=== PATIENT | male | born 1940 ===

== ENCOUNTER 2018-04-30 15:34 | Outpatient (REF) | payer MEDICARE, SELFPAY ==
[2018-04-30 19:46] LABS: HCT 39.9 % (40.0-50.0); Mean Corp. HGB Concentration 32.6 g/dL (32.0-36.0); Mean Corpuscular Hemoglobin 29.9 pg (27.0-33.0); Mean Corpuscular Volume 91.7 fL (80-95); Mean Platelet Volume 10.3 fL (8.0-11.0); Platelet Count 243 x1000/uL (130-400); RBC 4.35 m/cumm (4.50-6.00); White Blood Cell Count 4.96 k/cumm (4.4-10.8)
[2018-04-30 20:20] LABS: Anion Gap 4.7 mmol/L (3-11); BUN 20 mg/dL (7-18); CO2 29.3 mmol/L (21.0-32.0); CREATININE 1.02 mg/dL (0.70-1.30); Calcium 8.6 mg/dL (8.5-10.1); Chloride 109 mmol/L (98-107); Glucose 117 mg/dL (70-100); LDL CHOLESTEROL 95 mg/dL (<100); Potassium 3.9 mmol/L (3.5-5.1); Sodium 143 mmol/L (136-145); TSH 0.89 uIU/mL (0.358-3.74); Vitamin B12 1166 pg/mL (193-986)
== END 2018-04-30 15:54 ==
LOC: NCHCN 15:34
PROVIDERS: PCP Internal Medicine; Visit Provider Internal Medicine
DX: M72.2 Plantar fascial fibromatosis (principal); I10 Essential (primary) hypertension; R78.5 Finding of other psychotropic drug in blood; G31.84 Mild cognitive impairment of uncertain or unknown etiology
CPT/HCPCS: 80048; 83721; 85027; 82607; 84443

== ENCOUNTER 2018-05-04 16:31 | Outpatient (REF) | payer MEDICARE, SELFPAY ==
[2018-05-04 20:54] LABS: Iron 48 ug/dL (50-175); Total Iron Binding Capacity 367 ug/dL (250-450); Transferrin Sat 13 % (20-55)
[2018-05-04 21:06] LABS: Ferritin 62 ng/mL (8-388)
== END 2018-05-04 16:51 ==
LOC: NCHCN 16:31
PROVIDERS: PCP Internal Medicine; Referring Provider Internal Medicine; Visit Provider Internal Medicine
DX: D64.9 Anemia, unspecified (principal)
CPT/HCPCS: 82728; 83540; 83550; 85045

== ENCOUNTER 2018-05-05 10:53 | Outpatient (REF) | payer MEDICARE, SELFPAY ==
[2018-05-05 20:21] LABS: Reticulocyte 0.9 % (0.5-2.4)
== END 2018-05-05 11:13 ==
LOC: NCHCN 10:53
PROVIDERS: PCP Internal Medicine; Visit Provider Internal Medicine
DX: D64.9 Anemia, unspecified (principal)
CPT/HCPCS: 85045

== ENCOUNTER 2019-05-13 16:47 | Outpatient (REF) | payer MEDICARE, SELFPAY ==
[2019-05-13 20:10] LABS: ALT 24 U/L (16-63); Anion Gap 10.2 mmol/L (3-11); BUN 18 mg/dL (7-18); CO2 24.8 mmol/L (21.0-32.0); CREATININE 1.05 mg/dL (0.70-1.30); Calcium 8.9 mg/dL (8.5-10.1); Chloride 107 mmol/L (98-107); Glucose 98 mg/dL (70-100); LDL CHOLESTEROL 92 mg/dL (<100); Potassium 3.8 mmol/L (3.5-5.1); Sodium 142 mmol/L (136-145)
== END 2019-05-13 17:07 ==
LOC: NCHCN 16:47
PROVIDERS: PCP Internal Medicine; Visit Provider Internal Medicine
DX: I10 Essential (primary) hypertension (principal); M12.811 Other specific arthropathies, not elsewhere classified, right shoulder; G30.9 Alzheimer's disease, unspecified
CPT/HCPCS: 80048; 83721; 84460

== ENCOUNTER 2020-02-23 15:48 | Outpatient (REF) | payer MEDICARE, SELFPAY ==
[2020-02-23 19:41] LABS: HCT 40.4 % (40.0-50.0); HGB 13.4 g/dL (13.5-17.5); Mean Corp. HGB Concentration 33.2 g/dL (32.0-36.0); Mean Corpuscular Hemoglobin 30.2 pg (27.0-33.0); Mean Corpuscular Volume 91.2 fL (80-95); Mean Platelet Volume 10.8 fL (8.0-11.0); Platelet Count 208 x1000/uL (130-400); RBC 4.43 m/cumm (4.50-6.00); RBC Distribution Width 13.1 % (11.8-14.1); White Blood Cell Count 4.53 k/cumm (4.4-10.8)
[2020-02-23 20:00] LABS: ALT 24 U/L (16-63); AST 18 U/L (15-37); Albumin 3.8 g/dL (3.4-5.0); Alkaline Phosphatase 73 U/L (46-116); Anion Gap 9.1 mmol/L (3-11); BUN 22 mg/dL (7-18); Bilirubin, Total 0.9 mg/dL (0.2-1.0); CO2 25.9 mmol/L (21.0-32.0); CREATININE 1.04 mg/dL (0.70-1.30); Calcium 9.1 mg/dL (8.5-10.1); Chloride 106 mmol/L (98-107); Glucose 98 mg/dL (74-106); Potassium 4.2 mmol/L (3.5-5.1); Sodium 141 mmol/L (136-145); Total Protein 6.2 g/dL (6.4-8.2)
== END 2020-02-23 16:08 ==
LOC: NCHCN 15:48
PROVIDERS: PCP Internal Medicine; Visit Provider Internal Medicine
DX: I10 Essential (primary) hypertension (principal); G30.9 Alzheimer's disease, unspecified; Z00.00 Encounter for general adult medical examination without abnormal findings; K21.9 Gastro-esophageal reflux disease without esophagitis
CPT/HCPCS: 80053; 85027

== ENCOUNTER → 2020-03-21 12:32 | Outpatient (BNVA) | payer MEDICARE, SELFPAY | PROVIDERS: PCP Internal Medicine; Referring Provider Internal Medicine; Visit Provider Nurse Practitioner Adult Health | DX: F95.8 Other tic disorders (principal); R41.89 Other symptoms and signs involving cognitive functions and awareness | CPT/HCPCS: 99205; 99244 ==

== ENCOUNTER → 2020-04-24 13:30 | Outpatient (BNVA) | payer MEDICARE, SELFPAY | PROVIDERS: PCP Internal Medicine; Referring Provider Internal Medicine; Visit Provider Nurse Practitioner Adult Health | DX: G31.83 Neurocognitive disorder with Lewy bodies (principal); F02.80 Dementia in other diseases classified elsewhere, unspecified severity, without behavioral disturbance, psychotic disturbance, mood disturbance, and anxiety; I10 Essential (primary) hypertension | CPT/HCPCS: 99213 ==

== ENCOUNTER → 2020-12-18 12:28 | Outpatient (BNVA) | payer MEDICARE, SELFPAY | PROVIDERS: PCP Internal Medicine; Referring Provider Internal Medicine; Visit Provider Nurse Practitioner Adult Health | DX: G31.83 Neurocognitive disorder with Lewy bodies (principal); F02.80 Dementia in other diseases classified elsewhere, unspecified severity, without behavioral disturbance, psychotic disturbance, mood disturbance, and anxiety; H91.93 Unspecified hearing loss, bilateral | CPT/HCPCS: 99213; 99215; G2212 ==

== ENCOUNTER 2021-01-31 14:47 | Outpatient (REF) | payer MEDICARE, SELFPAY ==
[2021-01-31 19:03] LABS: HCT 40.6 % (40.0-50.0); HGB 13.8 g/dL (13.5-17.5); MCH 30.3 pg (27.0-33.0); MPV 10.8 fL (8.0-11.0); Platelet Count 186 10^3/uL (130-400); RBC 4.56 10^6/uL (4.36-5.78); RDW 12.5 % (11.8-14.1); RDW-SD 41.1 fL; WBC 4.67 10^3/uL (4.4-10.8)
[2021-01-31 19:30] LABS: BUN 20 mg/dL (7-18); CREATININE 1.2 mg/dL (0.70-1.30); Calcium 9.2 mg/dL (8.5-10.1); Chloride 106 mmol/L (98-107); Estimated GFR 58.26 (mL/min/1.73m2); Glucose 110 mg/dL (74-106); Potassium 4.3 mmol/L (3.5-5.1); Sodium 143 mmol/L (136-145); TSH 1.06 uIU/mL (0.36-3.74)
== END 2021-01-31 14:48 | disposition home or self-care (01) ==
LOC: NCHCN 14:47
PROVIDERS: PCP Internal Medicine; Visit Provider Internal Medicine
DX: I10 Essential (primary) hypertension (principal); G25.0 Essential tremor; D64.9 Anemia, unspecified
CPT/HCPCS: 80048; 85027; 84443

== ENCOUNTER → 2021-05-06 13:29 | Outpatient (BNVA) | payer MEDICARE, SELFPAY | PROVIDERS: PCP Internal Medicine; Referring Provider Internal Medicine; Visit Provider Nurse Practitioner Adult Health | DX: G31.83 Neurocognitive disorder with Lewy bodies (principal); F02.80 Dementia in other diseases classified elsewhere, unspecified severity, without behavioral disturbance, psychotic disturbance, mood disturbance, and anxiety | CPT/HCPCS: 99213 ==

== ENCOUNTER → 2021-12-02 12:21 | Outpatient (BNVA) | payer MEDICARE, SELFPAY | PROVIDERS: PCP Internal Medicine; Referring Provider Internal Medicine; Visit Provider Nurse Practitioner Adult Health | DX: G31.83 Neurocognitive disorder with Lewy bodies (principal); F02.80 Dementia in other diseases classified elsewhere, unspecified severity, without behavioral disturbance, psychotic disturbance, mood disturbance, and anxiety | CPT/HCPCS: 99213 ==

== ENCOUNTER 2022-03-14 16:55 | Outpatient (REF) | payer MEDICARE, SELFPAY ==
[2022-03-14 19:37] LABS: Anion Gap 9.2 mmol/L (3-11); BUN 25 mg/dL (7-18); CO2 26.8 mmol/L (21.0-32.0); CREATININE 1.2 mg/dL (0.70-1.30); Calcium 9.2 mg/dL (8.5-10.1); Chloride 105 mmol/L (98-107); Estimated GFR 58.11 (mL/min/1.73m2); Glucose 104 mg/dL (74-106); Potassium 4.3 mmol/L (3.5-5.1); Sodium 141 mmol/L (136-145)
== END 2022-03-14 16:56 | disposition home or self-care (01) ==
LOC: NCHCN 16:55
PROVIDERS: PCP Internal Medicine; Visit Provider Internal Medicine
DX: D64.9 Anemia, unspecified (principal)
CPT/HCPCS: 80048; 85027

== ENCOUNTER 2022-03-18 19:03 | Outpatient (REF) | payer MEDICARE, SELFPAY ==
[2022-03-18 20:04] LABS: HCT 39.1 % (40.0-50.0); HGB 13.1 g/dL (13.5-17.5); MCH 30.5 pg (27.0-33.0); MCHC 33.5 % (32.0-36.0); MCV 91 fL (80-95); MPV 10.7 fL (8.0-11.0); Platelet Count 198 10^3/uL (130-400); RBC 4.29 10^6/uL (4.36-5.78); RDW 12.7 % (11.8-14.1); RDW-SD 42.1 fL; WBC 6.15 10^3/uL (4.4-10.8)
== END 2022-03-18 19:04 | disposition home or self-care (01) ==
LOC: NCHCN 19:03
PROVIDERS: PCP Internal Medicine; Visit Provider Internal Medicine
DX: D64.9 Anemia, unspecified (principal); F41.8 Other specified anxiety disorders; K21.9 Gastro-esophageal reflux disease without esophagitis
CPT/HCPCS: 85027

== ENCOUNTER 2023-01-15 19:41 | Outpatient (REF) | payer MEDICARE, SELFPAY ==
[2023-01-15 20:38] LABS: Abs Immature Grans 0.01 10^3/uL (0.0-0.06); Absolute Basophil Count 0.04 10^3/uL (0.0-0.2); Absolute Eosinophil Count 0.27 10^3/uL (0.0-0.7); Absolute Lymphocyte Count 1.49 10^3/uL (1.2-3.4); Absolute Monocyte Count 0.46 10^3/uL (0.1-0.8); Absolute Neutrophil Count 2.53 10^3/uL (1.2-6.7); Basophils % 0.8; Eosinophils % 5.6; HCT 41.2 % (40.0-50.0); HGB 13.9 g/dL (13.5-17.5); Immature Grans % 0.2; MCH 30.6 pg (27.0-33.0); MCHC 33.7 % (32.0-36.0); MCV 91 fL (80-95); MPV 11.1 fL (8.0-11.0); Monocytes % 9.6; Neutrophils % 52.8; Platelet Count 178 10^3/uL (130-400); RBC 4.54 10^6/uL (4.36-5.78); RDW 12.9 % (11.8-14.1); RDW-SD 42.8 fL
[2023-01-15 20:58] LABS: Anion Gap 9.3 mmol/L (3-11); BUN 26 mg/dL (7-18); CO2 25.7 mmol/L (21.0-32.0); CREATININE 1.5 mg/dL (0.70-1.30); Calcium 9.4 mg/dL (8.5-10.1); Chloride 107 mmol/L (98-107); Estimated GFR 46.48 (mL/min/1.73m2); Glucose 106 mg/dL (74-106); Potassium 4.5 mmol/L (3.5-5.1); Sodium 142 mmol/L (136-145); TSH 1.18 uIU/mL (0.36-3.74)
== END 2023-01-15 19:42 | disposition home or self-care (01) ==
LOC: NCHCN 19:41
PROVIDERS: PCP Internal Medicine; Visit Provider Internal Medicine
DX: I10 Essential (primary) hypertension (principal); R53.83 Other fatigue
CPT/HCPCS: 80048; 84443; 85025

== ENCOUNTER 2024-04-20 20:23 | Outpatient (REF) | payer MEDICARE, SELFPAY ==
[2024-04-20 19:45] LABS: Anion Gap 11.3 mmol/L (3-11); BUN 21 mg/dL (7-18); CO2 25.7 mmol/L (21.0-32.0); CREATININE 1.3 mg/dL (0.70-1.30); Calcium 9.6 mg/dL (8.5-10.1); Chloride 105 mmol/L (98-107); Estimated GFR 54.51 (mL/min/1.73m2); Glucose 110 mg/dL (74-106); Potassium 4.1 mmol/L (3.5-5.1); Sodium 142 mmol/L (136-145)
--- OUTSIDE RECORDS SUMMARY | 2024-04-20 20:31 | XMS_ITS | Clinical Summary ---
Author Organization [facility] Address [address] [place] [address] Care Team Providers Care Certified Medical Coder Name Role Phone Todd Shen MD Primary Care Provider Unavail able Allergies No known active allergies Medications Medication Sig Dispensed Refills Start Date End Date Status ROSUVASTATIN CALCIUM (CRESTOR ORAL) Take by mouth. Active AMLODIPINE BESYLATE/BENAZEPRIL (LOTREL ORAL) Take by mouth. Active olmesartan (BENICAR) 20 mg tablet Take 20 mg by mouth daily. Active esomeprazole (NEXIUM) 40 mg capsule Take 40 mg by mouth every morning before breakfast. Active Active Problems No known active problems Surgical History Surgery Date Site/Laterality Comments SKIN CANCER EXCISION SCC from left cheek MOHS SURGERY 01/04/13 left scalp Medical History Medical History Date Comments Squamous cell carcinoma nos righ t cheek SCC (squamous cell carcinoma), scalp/neck 01/04/13 left scalp Social History Tobacco Use Types Packs/Day Years Used Date Smoking Tobacco: Never Assessed Interpersonal Safety Answer Date Record ed Physically Hurt Never 03/04/2020 Verbally Threaten Not on file 03/04/2020 Sex and Gender Information Value Date Recorded Sex Assigned at Not on file Gender Identity Not on file Sexual Orientation Not on file Obstetrics History Last Filed Vital Signs Vital Sign Reading Time Taken Comments Blood Pressure 138/80 01/04/2013 0954 EDT Pulse 48 01/04/2013 0954 EDT Temperature 36.9 ??C (98.5 ??F) 01/04/2013 0954 EDT Respiratory Rate - - Oxygen Saturation - - Inhaled Oxygen Concentration - - Weight - - Height - - Body Mass Index - - Plan of Treatment Health Maintenance Due Date Last Done Comments RSV Immunization ( o r 60+ Years) (1 - 1-dose 60+ series) 2001 Fall Risk Screening 2006 COVID-19 Vaccine ( season) 2023 Care Teams Certified Medical Coder Relationship Specialty Start Date End Date Tdod Shen MD PCP - General 01/31/09
--- OUTSIDE RECORDS SUMMARY | 2024-04-20 20:31 | XMS_ITS | Encounter Summary ---
Author Organization [facility] Address [address] [place] [address] Care Team Providers Care Agricultural Equipment Test Engineer Name Role Phone Todd Shen MD Primary Care Provider Unavail able Encounter Details Date Type Department Care Team (Latest Contact Info) Description 12/11/2015 11:38 EDT - 12/11/2015 11:39 EDT Hospital Encounter [address] [address] Rodo Luna, MANNY [address] [facility], [address] [place], [place] [id number] Discharge Disposition: Home or Self Care Social History Tobacco Use Types Packs/Day Years Used Date Smoking Tobacco: Never Assessed Sex and Gender Information Value Date Recorded Sex Assigned at Not on file Gender Identity Not on file Sexual Orientation Not on file documented as of this encounter Discharge Diagnoses Diagnosis D48.5 Neoplasm of uncertain behavior of skin-D48.5[ICD-10-CM] documented in this encounter Medications at Time of Discharge Medication Sig Dispensed Refills Start Date End Date AMLODIPINE BESYLATE/BENAZEPRIL (LOTREL ORAL) Take by mouth. esomeprazole (NEXIUM) 40 mg capsule Take 40 mg by mouth every morning before breakfast. olmesartan (BENICAR) 20 mg tablet Take 20 mg by mouth daily. ROSUVASTATIN CALCIUM (CRESTOR ORAL) Take by mouth. documented as of this encounter Discharge Disposition Disposition Code Departure Means Destination Home or Self Care documented in this encounter Plan of Treatment Not on file documented as of this encounter Visit Diagnoses Not on filedocumented in this encounter Care Teams Agricultural Equipment Test Engineer Relationship Specialty Start Date End Date Todd Shen MD PCP - General 01/31/09 documented as of this encounter
--- OUTSIDE RECORDS SUMMARY | 2024-04-20 20:31 | XMS_ITS | Encounter Summary ---
Author Organization [facility] Address [address] [place] [address] Care Team Providers Care Health Advisor Name Role Phone Todd Shen MD Primary Care Provider Unavail able Reason for Visit * Reason Comments Squamous Cell Carcinoma Scalp Encounter Details Date Type Department Care Team (Late st Contact Info) Description 01/04/2013 9:00 EDT Office Visit [facility] Dermatology 5th Floor [address] [id number] Marshall Mendez MD [address] [facility], [address] [place] [phone] Squamous cell carcinoma of scalp and skin of neck (Primary Dx); AK (actinic keratosis) Social History Tobacco Use Types Packs/Day Years Used Date Smoking Tobacco: Never Assessed Sex and Gender Information Value Date Recorded Sex Assigned at Not on file Gender Identity Not on file Sexual Orientation Not on file documented as of this encounter Last Filed Vital Signs Vital Sign Reading Time Taken Comments Blood Pressure 138/80 01/04/2013 0954 EDT Pulse 48 01/04/2013 0954 EDT Temperature 36.9 ??C (98.5 ??F) 01/04/2013 0954 EDT Respiratory Rate - - Oxygen Saturation - - Inhaled Oxygen Concentration - - Weight - - Height - - Body Mass Index - - documented in this encounter Patient Instructions * Patient Instructions* Marshall Mendez MD - 01/04/2013 10:08 EDT CARE FOLLOWING YOUR SKIN SURGERY- Open Wound Care ACTIVITY:? Avoid strenuous activity for 48 hours. Resume moderate activity after that for one week. Slowly walking/strolling is an excellent light activity during recovery. Running and weightlifting are not.? If your surgery was on your head or neck, elevate your head with pillows when you lie down, and do not bend over to pick up truck driver objects or tie your shoes for 48 hours.? habits and is BATHING: ?? Keep the area of your surgery dry for the first 24 hours. ?? After 24 hours, you may shower.?? Gently remove the bandage, and replace it after the shower.?? If you bathe in a tub, the bath should be brief. DISCOMFORT: ?? Do not use aspirin, products containing aspirin, ibuprofen (AdvilTM or MotrinTM), or naproxen (AleveTM) for five days after your surgery, unless approved by your physician. ?? To relieve discomfort, you may take acetaminophen (for example, TylenolTM or Extra-Strength TylenolTM) as directed. If your doctor has given you a prescription for Vicodin, Tylenol with codeine orPercocet, or another pain medicine, you may use this as directed. ?? The scar may be itchy, tight and sensitive to extreme temperatures for a year after the surgery. BLEEDING, BRUISING, AND SWELLING: ?? It is normal for your wound to ooze a small amount of blood and stain the dressing. ?? Expect bruising and swelling in the area of your surgery to be the most noticeable 48 to 72 hours after surgery.?? Bruising and swelling usually begin to lessen 4 to 5 days after surgery. Bruisingwill start to fade in 10-14 days. ?? You may minimize swelling by sleeping with your head elevated on several pillows. ?? If the swelling worsens rapidly or gets increasingly tender, contact your physician. ?? If your wound bleeds enough that the blood heavily soaks through to the outside of your bandage,do the following 1. Remove the bandage 2. If the site is slowly bleeding, but not gushing blood, then place a clean gauze on the wound andhold continuous pressure for 15 to 20 minutes. Reapply pressure for another 20 minutes if necessary(no peeking).?? 3. Reinforce the bandage with additional gauze and tape. 4. If the bleeding does not stop or if the bleeding is severe, renew pressure and contact your physician for further instructions.?? If there is substantial bleeding that does not resolve with pressure, proceed to the nearest emergency room or call 911. 5. Begin wound care 24 hours after surgery as directed. INFECTION: ?? It is normal for your wound to be slightly sore and pink. ?? If the area becomes increasingly tender, red or warm, or if you develop fever and chills, then??contact your physician. DIETARY RESTRICTIONS: ?? If your surgery involved your lips or mouth, avoid hot liquids and foods for the first two to three hours after surgery.?? Eat soft foods and be careful when brushing your teeth until sutures are removed. ?? Do not smoke for 3 weeks after surgery. Smoking is bad for wound healing. DAILY WOUND CARE: ?? Always wash your hands with soap and water before your daily wound care. ?? Gently remove your bandage 24 hours after surgery.?? Then change the dressing each day or whenever it becomes wet, according to these instructions: 1. Gently clean the area with cotton swabs dipped in warm soapy tap water. 2. As you clean the area, remove all crusty material.?? If you cannot easily remove the crust, soakthe area with wet gauze for 15 to 20 minutes.?? Do not let thick crusts or scabs form.?? Your woundwill heal faster if you keep it clean and moist. 3. After cleaning the wound, pat the area dry with clean gauze or cotton-tipped swabs. 4. Next, use a clean cotton swab to apply Vaseline/petroleum jelly. Do not use Bacitracin or NeosporinTM ointment. 5. Cover it with nonstick gauze (TelfaTM) or a bandaid.?? Secure the dressing with paper tape. 6. Repeat wound care once a day until wound is completely healed. It is an old wives tale that a wound heals faster if it is exposed to air and allowed to dry out. The wound will heal faster with a better cosmetic result if it is kept moist with ointment and covered with a bandage. Do not let the wound dry out. If the wound is on your lower leg it may take several months to completely heal. WOUND HEALING: ?? One week after surgery a pink/red halo will form around the outside of the wound. This is new skin. ?? The center of the wound will appear yellowish white and produce some drainage. ?? The pink halo will slowly migrate in toward the center of the wound until the wound is covered with new shiny pink skin. ?? There will be no more drainage when the wound is completely healed. ?? It will take 6 months to a year for the redness to fade. ?? Massaging the area several times a day for several minutes after the wound is completely healed will help the scar to soften and normalize faster. Begin massage only after healing is complete. WHEN TO CONTACT YOUR PHYSICAN: ?? Your wound continues to bleed after you have applied firm pressure for 20 minutes. ?? Your wound becomes increasingly sore, tender, red, or warm or rapidly swells CONTACT INFORMATION: To reach the sld inclusion teacher physician: During office hours: 8:00 am - 5:00 PM Thursday through Thursday Call:?? [phone] and ask to speak with a surgery nurse AFTER HOURS/WEEKENDS/HOLIDAYS:? Call [phone] for the MOHS surgeon sld inclusion teacher. documented in this encounter Progress Notes * Dawson Felix PA-C - 01/04/2013 1006 EDT Images from the original note were not included. MOHS SURGERY - POSTOP SUMMARY Rodo Malave is a 72 y.o. year old male who underwent Mohs surgery today 01/04/2013. The following is a summary of the operative findings: Lesion 1 invasive squamous cell carcinoma Location left parietal scalp Size Preop (cm) 1.3 x 1.0 cm Size Postop (cm) 1.7 x 1.3 cm Stages 1 Depth of Excision parietal scalp Repair second intention Mr. Malave was discharged from the operative suite in good condition. He was carefully instructed inpostoperative wound care both verbally and in writing. The patient will return for follow up with Polly Sal PA-C. Note: A small actinic keratosis was noted at the margin of the Mohs excision which was destroyed with electrodesiccation and curettage. In addition to the above, the patient asked to have a new lesion on his right scalp evaluated today. On the right superior occipital scalp was a 6mm pink keratoticfirm papule consistent with a hypertrophic actinic keratosis or early squamous cell carcinoma in situ. Treatment with desiccation and curettage was recommended and performed as per the separate procedure note in the patient's record. Marshall Mendez MD 01/04/2013 12:06 * Dawson Felix PA-C - 01/04/2013 0958 EDT (See Mohs consult as performed by Jaiden Watson MD, today.) MOHS OPERATIVE REPORT Patient Name: Rdoo Malave Date of Service: January 04, 2013 Surgeon: Marshall Mendez MD Checker And Packer: Dawson Felix PA-C; Stephanie Oliva MD Case #: [id number] Preoperative Diagnosis: invasive squamous cell carcinoma Preoperative Procedure: Mohs micrographic surgery Location of Lesion: left parietal scalp Preoperative Lesion Size: 1.3 cm x 1.0 cm Preoperative Procedure: Mohs microscopically-controlled fresh tissue excision Indications: The patient presents with a invasive squamous cell carcinoma. Because of the histologic and clinical nature of the lesion, as well as its location, the need to achieve the highest cure rate while providing maximum tissue preservation warranted tumor extirpation via microscopically-controlled excision using the Mohs fresh tissue technique. Alternate therapeutic options were discussed on several occasions prior to surgery. After informed consent was obtained and appropriate instruction was provided, the patient underwent tumor extirpation by the Mohs fresh tissue technique as follows: PROCEDURE - INITIAL STAGE: Patient position: supine Anesthesia: 1% lidocaine with epinephrine 1:100,000 local infiltration Prep: Povodine Iodine The patient was brought to the operative suite. The lesion was identified and was prepped in a sterile fashion. The area was infiltrated with lidocaine/epinephrine to achieve complete anesthesia and to augment hemostasis. An initial beveled excision was performed to the subcutis with a scalpel blade and tissue scissors as indicated. A hash was created in the specimen and within the adjacent epidermis for marking purposes. The Mohs specimen was excised in a sharp manner, and carefully placed in proper orientation on the surgical tray. Hemostasis of the operative wound was obtained with carefulspot electrocoagulation. A sterile non-adherent dressing was applied to the operative wound. The Mohs tissue specimen was carefully transferred to the lab where the tissue was divided, and color inked for orientation by me. These specimens were mapped and then handed personally to the metallurgical engineering technician for frozen sectioning. The tissue was embedded so that the deep and surface margins lay in the same plane, and sections were made through this plane. Once the slide preparation was complete I personally performed histologic evaluation and interpretation of all sections. A summary of my findingsmay be found below. Stage 1 findings: Wound Depth subcutis Sections Created 1 Number of Sections Containing Tumor 0 (focal actinic keratosis identified near red inked margin wasdestroyed with desiccation and curettage x 2). With the patient clear of microscopic tumor, surgery was considered complete. Postoperative Wound Size: 1.7 x 1.3 cm Final Diagnosis: invasive squamous cell carcinoma Final Procedure: Mohs micrographic surgery Blood Loss: Minimal Operative Time: 45 minutes Complications: None Note: Superficial wound left to heal by second intention. I was present during all tian and critical portions of this procedure and remained immediately available throughout. I performed the tian elements of the procedure. MARSHALL MENDEZ MD 01/04/2013 12:09 CURETTAGE AND ELECTRODESICCATION PATIENT INFORMATION: Rodo Malave : MRN: [id number] SURGEON: Marshall Mendez MD MANUFACTURING APPLICATIONS ENGINEER: Dawson Felix PA-C PROCEDURE DATE: 01/04/2013 Time out: The patient name, date of , surgical site, and procedure were verified prior to the procedure. Dawson Felix PA-C 12:01 01/04/2013. Procedure Note: Specimen A PREOPERATIVE DIAGNOSIS: Hypertropic actinic keratosis LESION SITE: vertex, right and posterior scalp LESION SIZE: 1.2 x 1.1 cm MARGIN PER SIDE: 0.1 cm ANESTHESIA: 1% lidocaine with epinephrine 1:100,000 local infiltration PREP: Povodine Iodine NUMBER OF CYCLES: 2 FINAL WOUND SIZE: 1.4 x 1.3 cm Specimen B PREOPERATIVE DIAGNOSIS: Hypertropic actinic keratosis LESION SITE: left parietal scalp, at anterior margin of Mohs defect LESION SIZE: 1.1 x 0.9 cm MARGIN PER SIDE: 0.1 cm ANESTHESIA: 1% lidocaine with epinephrine 1:100,000 local infiltration PREP: Povodine Iodine NUMBER OF CYCLES: 2 FINAL WOUND SIZE: 1.3 x 1.1 cm The indication, risks, benefits and alternatives to this procedure were discussed in detail with the patient and all questions were answered. The patient had no contraindications to surgery with local anesthesia. Informed consent was obtained in writing. The patient was brought to the operative suite and positioned. The lesion was identified, prepped in a sterile fashion, and anesthetized. The lesion was then destroyed by standard curettage and electrodesiccation. The wound was cleansed with saline and a sterile dressing was applied over Vaseline ointment. Verbal and written wound care instructions were given. The patient tolerated the procedure well and left the operating suite in excellent condition. Biopsy Sent: No, for lesion A/Lesion B checked via Mohs surgical analysis, see note above. Blood Loss: Minimal Complications: None Marshall Mendez MD 01/04/2013 12:09 * Lamar Villagran - 01/04/2013 0955 EDT Patient Education Topic: wound care Method: Demonstration, Handout and Verbal Taught to: Patient Barriers: None Outcomes: independent Signature: Lamar Villagran documented in this encounter Procedure Notes * COMMERCIAL REPORTER, SCAN 2 - 01/09/2013 1938 EDTAssociated Order(s): PROCEDURE REPORTS - SCANNED documented in this encounter Miscellaneous Notes * Scanned Note-Null - COMMERCIAL REPORTER, SCAN 2 - 01/10/2013 1138 EDT * Scanned Note-Null - COMMERCIAL REPORTER, SCAN 2 - 01/10/2013 0726 EDT documented in this encounter Plan of Treatment Not on file documented as of this encounter Procedures Procedure Name Priority Date/Time Associated Diagnosis Comments PROCEDURE REPORTS - SCANNED 01/09/2013 19:38 EDT documented in this encounter Results * PROCEDURE REPORTS - SCANNED (01/09/2013 19:38 EDT) 01/09/2013 19:3 8 EDT Narrative 01/09/2013 20:57 EDT Procedure Note COMMERCIAL REPORTER, SCAN 2 - 01/09/2013 19:38 EDT Scan 2 Prosecuting Attorney PROCEDURE/MINOR FAHAD GICAL ORDERABLES documented in this encounter Visit Diagnoses Diagnosis Squamous cell carcinoma of scalp and skin of neck- Primary AK (actinic keratosis) Actinic keratosis documented in this encounter Care Teams Health Advisor Relationship Specialty Start Date End Date Todd Shen MD PCP - General 01/31/09 documented as of this encounter
--- OUTSIDE RECORDS SUMMARY | 2024-04-20 20:31 | XMS_ITS | Encounter Summary ---
Author Organization [facility] Address [address] [place] [address] Care Team Providers Care Aeronautical Engineering Technologist Name Role Phone Todd Shen MD Primary Care Provider Unavail able Encounter Details Date Type Department Care Team (Late st Contact Info) Description 12/03/2022 Lab Requisition [facility] Pathology & Laboratory Medicine - [facility] [address] [place] [address] Frank May, PAJefferyC [address] [facility] [address] [place] [address] Neoplasm of uncertain behavior of skin Social History Tobacco Use Types Packs/Day Years Used Date Smoking Tobacco: Never Assessed Interpersonal Safety Answer Date Record ed Physically Hurt Never 03/04/2020 Verbally Threaten Not on file 03/04/2020 Sex and Gender Information Value Date Recorded Sex Assigned at Not on file Gender Identity Not on file Sexual Orientation Not on file documented as of this encounter Plan of Treatment Not on file documented as of this encounter Procedures Procedure Name Priority Date/Time Associated Diagnosis Comments SURGICAL PATHOLOGY Today 12/02/2022 13 :07 EDT Neoplasm of uncertain behavior of skin documented in this encounter Results * SURGICAL PATHOLOGY (12/02/2022 13:07 EDT) Note to Patient The following pathology results have been interpreted by your pathologist and may be available to you before your health provider has had the opportunity to review them. Please allow time for your provider to receive these results and explore management options, if applicable. 12/04/2022 10:13 EDT [facility] Final Diagnosis A. SKIN OF CHEEK, RIGHT SUPERIOR LATERAL MALAR, SHAVE BIOPSY: - Squamous cell carcinoma, well differentiated, invasive. - Squamous cell carcinoma present at deep tissue edge. 12/04/2022 10:13 [facility] Attestation By the signature below, the attending physician certifies that they have 1) personally conducted a gross and/or microscopic examination of the described specimen(s), and/or personally interpreted the results of laboratory testing of the described specimen(s), and 2) personally rendered or confirmed the above diagnosis. 12/04/2022 10:13 [facility] at 1013 Microscopic Description The stratum corneum is thickened by orthohyperkeratosis and parakeratosis. Emanating from the epidermis and extending into the dermis is a proliferation of atypical squamous epithelium. The proliferation consists of variably sized, irregular islands associated with dermal desmoplasia. The cells have an increased nuclear-cytoplasmic ratio and nuclear pleomorphism. Intercellular bridge and keratin obinna formation are evident. 12/04/2022 10:13 [facility] Clinical History 0.7 cm hyperkeratotic papule; DDx: Rule out squamous cell carcinoma; clinical diagnosis code: D48.5 12/04/2022 10:13 [facility] Gross Description A. Received in formalin labelled with proper patient identification (initials L, D) and right superior lateral ulisses... is an ovoid shave biopsy of a lee white centrally firm crusted papule (0.5 x 0.4 x 0.1 cm). The specimen is inked, bisected and submitted entirely in A1. MANNY PAYNE(ASCP) 12/03/2022 9:52 12/04/2022 10:13 [facility] Performing Lab [facility] 12/04/2022 10:13 [facility] Scanned Images 12/04/2022 10:13 [facility] Tissue TISSUE SPECIMEN FROM SKIN / Unknown 12/02/2022 13:07 EDT 12/03/2022 6:18 EDT Frank May PA-C PATHOLOGY ORDERAB LES [facility] [address] [place] [address] documented in this encounter Visit Diagnoses Diagnosis Neoplasm of uncertain behavior of skin documented in this encounter Care Teams Aeronautical Engineering Technologist Relationship Specialty Start Date End Date Todd Shen MD PCP - General 01/31/09 documented as of this encounter
--- OUTSIDE RECORDS SUMMARY | 2024-04-20 20:31 | XMS_ITS | Encounter Summary ---
Author Organization [facility] Address [address] [place] [address] Care Team Providers Care Manager Of Network Name Role Phone Todd Shen MD Primary Care Provider Unavail able Encounter Details Date Type Department Care Team (Late st Contact Info) Description 12/11/2015 Results Only [facility] [phone] Garett Luna PA [address], [address] [place] [address] Social History Tobacco Use Types Packs/Day Years Used Date Smoking Tobacco: Never Assessed Sex and Gender Information Value Date Recorded Sex Assigned at Not on file Gender Identity Not on file Sexual Orientation Not on file documented as of this encounter Plan of Treatment Not on file documented as of this encounter Procedures Procedure Name Priority Date/Time Associated Diagnosis Comments SURGICAL PATHOLOGY Routine 12/11/2015 13 :39 EDT documented in this encounter Results * SURGICAL PATHOLOGY (12/11/2015 13:39 EDT) Pathology Report: SURGICAL PATHOLOGY REPORT Reports generated via electronic interface contain original data; however they are lacking the format of the original report. Caution should be taken when reading/interpreting unformatted reports. Name: ? GARETT MALAVE ? Accession #: ? [id number] ? : ? 1940 (Age: 75) ??M ? Collect Date: ? 12/11/2015 ? Location: ? [facility] ? Receive Date: ? 12/12/2015 ? Provider: GARETT BRYANT Copy to: RUSTY MERRITT MD ? Final Pathologic Diagnosis: A. ??SKIN OF CHEST, LEFT MEDIAL SUPERIOR, SHAVE BIOPSY: - Seborrheic keratosis with associated chronic folliculitis and dermal fibrosis. See comment. B. ??SKIN OF CHEEK, RIGHT CENTRAL MALAR, SHAVE BIOPSY: - Actinic keratosis, inflamed. Comment: Multiple sections of the biopsy from left medial superior chest (A) were reviewed. ??The biopsy consists of an eccentric seborrheic keratosis. ??Associated with the seborrheic keratosis is a mildly inflamed follicular unit with fibrosis and portions of liberated hair shaft. ??No basal cell carcinoma is identified on either the original or additional deeper sections. ??(Dr. Hatch)/[facility] Microscopic Description: A-Sections consist of a shave biopsy with an eccentric low papule. ??The papule is formed by epidermal acanthosis with an anastomosing rete ridge pattern and slight hyperkeratosis. ??Within the underlying dermis, there is mild fibrosis and inflammation, including a few multinucleate giant cells. ??Histiocytes surround a portion of liberated hair shaft. ??Deeper sections have similar features. B-The stratum corneum is thickened by orthohyperkeratosis with foci of parakeratosis. ??The epidermis is focally thickened with elongate and bulbous rete ridges. ??The basal keratinocytes show a variable degree of atypia including nuclear enlargement, dispolarity, and hyperchromasia. ??The dermis is marked by solar elastosis, vascular ectasia and a lymphohistiocytic infiltrate. ??(Dr. Hatch)/n Document reviewed and electronically signed by: ALICIA HATCH MD Report ??Date: 12/13/2015 17:25 By the signature above, the attending physician certifies that he/she has personally conducted a gross and/or microscopic examination of the described specimens and rendered or confirmed the above diagnosis. Specimen(s) Received: A. ??Left medial superior chest B. ??Right central malar cheek Clinical History: A. [place] telangiectatic papule, 3.5 mm; DDx: Rule out basal cell carcinoma; B. 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 ?Received in formalin labelled with proper patient identification (initials L, D) and left medial superior chest is a 0.6 x 0.4 cm skin shave excised to a depth of 0.15 cm. The skin surface is dull zheng and shows a focal slightly raised dull calix lesion. The margin is inked. The tissue is trisected and entirely submitted in A1. B. ?Received in formalin labelled with proper patient identification (initials L, D) and right central malar cheek is a 0.8 x 0.5 x 0.1 cm skin shave having a granular calix-white surface. The margin is inked. Trisected and entirely submitted in B1. Katie Mckinnon 12/12/2015 3:43 PM End of Report [facility] 12/11/2015 13:3 9 EDT 12/12/2015 13:39 EDT Garett BRYANT PATHOLOGY ORDERABLES Performing Organization Address City/State/[facility] Co de Phone Number [facility] [address] [place] [address] documented in this encounter Visit Diagnoses Not on filedocumented in this encounter Care Teams Manager Of Network Relationship Specialty Start Date End Date Todd Shen MD PCP - General 01/31/09 documented as of this encounter
--- OUTSIDE RECORDS SUMMARY | 2024-04-20 20:31 | XMS_ITS | Encounter Summary ---
Author Organization [facility] Address [address] [place] [address] Care Team Providers Care Bolt Maker Name Role Phone Todd Shen MD Primary Care Provider Unavail able Encounter Details Date Type Department Care Team (Late st Contact Info) Description 12/30/2019 Lab Requisition [facility] Pathology & Laboratory Medicine - [facility] [address] [place], [place] [id number] Outr Resulting Lab, Provider Social History Tobacco Use Types Packs/Day Years Used Date Smoking Tobacco: Never Assessed Sex and Gender Information Value Date Recorded Sex Assigned at Not on file Gender Identity Not on file Sexual Orientation Not on file documented as of this encounter Plan of Treatment Not on file documented as of this encounter Procedures Procedure Name Priority Date/Time Associated Diagnosis Comments DO NOT ORDER STANDALONE - [facility] COVID TEST Today 12/30/2019 11:09 EDT COVID-19 TESTING Routine 12/30/2019 11:0 9 EDT documented in this encounter Results * DO NOT ORDER STANDALONE - [facility] COVID TEST (12/30/2019 11:09 EDT) COVID-19 rt-PCR Result NEGATIVE Negative 12/31/2019 22:30 EDT [facility] Comment: 2019-novel Coronavirus (2019-nCoV) not detected by the qRT-PCR assay. Consider testing for other respiratory viruses or re-collecting for 2019-nCoV testing. Note: Optimum timing for peak viral levels during infections caused by 2019-nCoV have not been determined. Collection of multiple specimens from the same patient may be necessary to detect the virus. Limitations Positive results are indicative of active infection with SARS-CoV-2 but do not rule out bacterial infection or co-infection with other viruses. The agent detected may not be the definite cause of disease. In addition, detection of viral RNA may not indicate the presence of infectious virus or that SARS-CoV-2 is the causative agent for clinical symptoms. Negative results do not preclude SARS-CoV-2 infection and should not be used as the sole basis for patient management decisions. Negative results must be combined with clinical observations, patient history, and epidemiological information. False negative results may also occur if amplification inhibitors are present in the specimen or if inadequate numbers of organisms are present in the specimen. Optimum specimen types and timing for peak viral levels during infections caused by SARS-CoV-2 have not been fully determined. Collection of multiple specimens (types and time points) from the same patient may be necessary to detect the virus. The test was validated for use with upper respiratory specimens obtained via nasopharyngeal or oropharyngeal swabs in VTM, UTM, M4, M5, M6, saline, and MTM media. The performance of this test has not been established for other specimens. Specimens collected using other FDA recommended Specimen Collection Materials listed in the FDA COVID-19 [employer] communication (October 27, 2019) are processed with the caveat that they were not all validated for use with this test and the result must be interpreted in this context. Furthermore, a false negative results may occur if a specimen is improperly collected, transported or handled. If the virus mutates in the RT-PCR target region, SARS-CoV-2 may not be detected or may be detected less predictably. Inhibitors or other types of interference may produce a false negative result. An interference study evaluating the effect of common cold medications was not performed. This test is not FDA-cleared but its performance characteristics were established by our CLIA-certified, CAP-accredited, high complexity laboratory in accordance with CLIA regulations, [employer] (CAP) guidelines (Oct 20, 2019), and FDA guidance (Oct 01, 2019). This test is only for use under the Food and Drug Administration's Emergency Use Authorization. Swab ENTIRE NASOPHARYNX / Unknown 12/30/2019 11:09 EDT 12/30/2019 21:08 EDT Provider Outr Resulting Lab MICROBIOLOGY - GENERAL ORDERABLES [facility] [place] * COVID-19 TESTING (12/30/2019 11:09 EDT) COVID-19 rt-PCR Result NEGATIVE Negative 12/31/2019 23:37 EDT [facility] Comment: 2019-novel Coronavirus (2019-nCoV) not detected by the qRT-PCR assay. Consider testing for other respiratory viruses or re-collecting for 2019-nCoV testing. Note: Optimum timing for peak viral levels during infections caused by 2019-nCoV have not been determined. Collection of multiple specimens from the same patient may be necessary to detect the virus. Limitations Positive results are indicative of active infection with SARS-CoV-2 but do not rule out bacterial infection or co-infection with other viruses. The agent detected may not be the definite cause of disease. In addition, detection of viral RNA may not indicate the presence of infectious virus or that SARS-CoV-2 is the causative agent for clinical symptoms. Negative results do not preclude SARS-CoV-2 infection and should not be used as the sole basis for patient management decisions. Negative results must be combined with clinical observations, patient history, and epidemiological information. False negative results may also occur if amplification inhibitors are present in the specimen or if inadequate numbers of organisms are present in the specimen. Optimum specimen types and timing for peak viral levels during infections caused by SARS-CoV-2 have not been fully determined. Collection of multiple specimens (types and time points) from the same patient may be necessary to detect the virus. The test was validated for use with upper respiratory specimens obtained via nasopharyngeal or oropharyngeal swabs in VTM, UTM, M4, M5, M6, saline, and MTM media. The performance of this test has not been established for other specimens. Specimens collected using other FDA recommended Specimen Collection Materials listed in the FDA COVID-19 [employer] communication (October 27, 2019) are processed with the caveat that they were not all validated for use with this test and the result must be interpreted in this context. Furthermore, a false negative results may occur if a specimen is improperly collected, transported or handled. If the virus mutates in the RT-PCR target region, SARS-CoV-2 may not be detected or may be detected less predictably. Inhibitors or other types of interference may produce a false negative result. An interference study evaluating the effect of common cold medications was not performed. This test is not FDA-cleared but its performance characteristics were established by our CLIA-certified, CAP-accredited, high complexity laboratory in accordance with CLIA regulations, [employer] (CAP) guidelines (Oct 20, 2019), and FDA guidance (Oct 01, 2019). This test is only for use under the Food and Drug Administration's Emergency Use Authorization. Performing Lab [facility] 12/31/2019 23:37 EDT [facility] Swab ENTIRE NASOPHARYNX / Unknown 12/30/2019 11:09 EDT 12/30/2019 21:08 EDT Provider Outr Resulting Lab MICROBIOLOGY - GENERAL ORDERABLES [facility] [address] [place] [id number] [facility] [place] documented in this encounter Visit Diagnoses Not on filedocumented in this encounter Care Teams Bolt Maker Relationship Specialty Start Date End Date Todd Shen MD PCP - General 01/31/09 documented as of this encounter
--- OUTSIDE RECORDS SUMMARY | 2024-04-20 20:31 | XMS_ITS | Encounter Summary ---
Author Organization [facility] Address [address] [place] [address] Care Team Providers Care Director Of Health Education Name Role Phone Todd Shen MD Primary Care Provider Unavail able Encounter Details Date Type Department Care Team (Late st Contact Info) Description 05/18/2018 Results Only [facility] [phone] Rohan Candelario MD [address] [place] [phone] Social History Tobacco Use Types Packs/Day Years Used Date Smoking Tobacco: Never Assessed Sex and Gender Information Value Date Recorded Sex Assigned at Not on file Gender Identity Not on file Sexual Orientation Not on file documented as of this encounter Plan of Treatment Not on file documented as of this encounter Procedures Procedure Name Priority Date/Time Associated Diagnosis Comments SURGICAL PATHOLOGY Routine 05/18/2018 8:06 EDT documented in this encounter Results * SURGICAL PATHOLOGY (05/18/2018 8:06 EDT) Pathology Report: SURGICAL PATHOLOGY REPORT Reports generated via electronic interface contain original data; however they are lacking the format of the original report. Caution should be taken when reading/interpretin g unformatted reports. Name: ? GARETT MALAVE ? Accession #: ? [id number] ? : ? 1940 (Age: 78) ??M ? Collect Date: ? 05/18/2018 ? Location: ? [facility] ? Receive Date: ? 05/18/2018 ? Provider: ROHAN CANDELARIO MD Copy to: ? Final Pathologic Diagnosis: A. STOMACH, BIOPSY: - Gastric antral mucosa with mild reactive (chemical) gastritis B. GASTROESOPHAGEAL JUNCTION, BIOPSY: - Columnar lined mucosa with reflux esophagitis. - Negative for intestinal metaplasia; Negative for dysplasia. ?? C. COLON, TRANSVERSE, POLYP, BIOPSY: - Tubular adenoma. D. COLON, SIGMOID, POLYP, BIOPSY: - ??Colonic mucosa with prominent lymphoid aggregate. - ??Deeper sections have been reviewed. Document reviewed and electronically signed by: MAGDALENA ROWLAND MD Report ??Date: 05/21/2018 09:53 By the signature above, the attending physician certifies that he/she has personally conducted a gross and/or microscopic examination of the described specimens and rendered or confirmed the above diagnosis. Specimen(s) Received: A. ?Gastric mucosal bx B. ? GE junction bx C. ? Transverse colon biopsy D. ? Sigmoid colon polyp Clinical History: Anemia/GERD Gross Description: A. ?Received in formalin labelled with proper patient identification (initials L, D) and gastric mucosal bx are two pink-lee tissues (0.3 x 0.2 x 0.2 cm and 0.3 x 0.3 x 0.2 cm). Entirely submitted in A1. B. ?Received in formalin labelled with proper patient identification (initials L, D) and GE junction are two pink-lee tissues (0.2 x 0.2 x 0.2 cm and 0.3 x 0.2 x 0.2 cm). Entirely submitted in B1. C. ?Received in formalin labelled with proper patient identification (initials L, D) and transverse colon polyp is a single pink-lee tissue fragment (0.3 x 0.2 x 0.2 cm). Submitted intact in C1. D. ?Received in formalin labelled with proper patient identification (initials L, D) and sigmoid colon polyp are two pink-lee tissues (0.1 x 0.1 x 0.1 cm and 0.2 x 0.1 x 0.1 cm). Entirely submitted in D1. MANNY Zhao (ASCP) 05/19/2018 9:47 AM End of Report [facility] 05/18/2018 8:06 EDT 05/18/2018 8:06 EDT Rohan Candelario MD PATHOLOGY ORDER [facility] [address] [place] [address] documented in this encounter Visit Diagnoses Not on filedocumented in this encounter Care Teams Director Of Health Education Relationship Specialty Start Date End Date Todd Shen MD PCP - General 01/31/09 documented as of this encounter
--- OUTSIDE RECORDS SUMMARY | 2024-04-20 20:31 | XMS_ITS | Continuity of Care Document ---
Author Organization [facility] Address [address] [place] [address] Care Team Providers Care Dredge Pipe Installer Name Role Phone RUSTY MOORE Primary Care Provider Assessment No assessment recorded. Plan of Treatment Reminders Order Date Submit Date Provider Last Modified By Organization Details Last Modified Time Details Appointments Follow Up 30 2023 02:00P M Not available Not available Not available Lab BMP, serum or plasma 2023 024 [email or web address] [facility] (Registration), [address] [place] [address] , [place], [address], 04/20/2024 16:33:[address] st referra l - Call guerline Del Rosariojerricacristal herr for appt [phone] 2023 024 [facility], [address] [place] [address] , [facility], [place], [address], 04/20/2024 18:25:15 Procedures None recorde d. Surgeries None recorde d. Imaging None recorde d. Medication Orders None recorde d. Patient TargetsNo targets recorded. Patient InstructionsNo instructions recorded. Reason for Referral Occupational Therapist Refer ral for Alzheimer's disease Call daughter Jennifer Johns for appt [phone] Referring Physician: Rusty Moore, Internal Medicine, Encounter Date: 04/20/2024 Results Created Date Observation Date Name Description Value Unit Range Abnormal Flag Note LastModifiedBy Organization Detail LastModifiedTime 04/18/2001/11/2019 MRI, head No observ ation record ed. [email or web address] Not Available 04/18 11:17:06 Result Notes None recorded. 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 Problem Code: J45.990; Problem Code Type: ICD-10; Not Available [facility] 3 04:17:09 Generali zed anxiety disorder 64052861 Active 2013 Problem Code: F41.1; Problem Code Type: ICD-10; Not Available [facility] 3 04:17:10 [facility] hyperten willie 08616176 Active 200101/16/20 23 - Comments only - Rusty Moore MD - BP well controll ed, I am checking labs today Problem Code: I10; Problem Code Type: ICD-10; Not Available [facility] 3 04:17:10 Hyperlip idemia 01841415 Active 200302/01/20 21 - Comments only - Rusty Moore MD - At age 89 with no evidence for vascular disease I think we should stop his Crestor. I want to minimize the number of meds. Problem Code: E78.5; Problem Code Type: ICD-10; Not Available [facility] 3 04:17:10 Gastroes ophageal reflux disease without esophagi tis 069121209 Active 200109/17/19 23 - Comments only - Rusty Moore MD - Asymptom atic on a PPI , reminded him to take a multivit sepulveda with this Problem Code: K21.9; Problem Code Type: ICD-10; Not Available [facility] 3 04:17:10 Erectile dysfunct ion 336320930 Active 2013 Problem Code: F52.21; Problem Code Type: ICD-10; Not Available [facility] 3 04:17:10 Actinic keratosi s 626381943 Active 2013 Problem Code: L57.0; Problem Code Type: ICD-10; Not Available [facility] 3 04:17:10 Cerebral cyst 63493724 Active 2014 Problem Code: G93.0; Problem Code Type: ICD-10; Not Available [facility] 3 04:17:10 Essentia l tremor 321023321 Active 201401/13/20 15 - Comments only - Rusty Moore MD - Ressuran , reviewed possible rx but it is too mild. Problem Code: G25.0; Problem Code Type: ICD-10; Not Available [facility] 3 04:17:10 Low back pain 893552886 Completed 201405/22/2015 Problem Code: M54.5; Problem Code Type: ICD-10; Not Available [facility] 3 04:17:11 Benign prostati c hyperpla jose miguel 869931913 Active 201612/18/19 18 - Comments only - Rusty Moore MD - Stable, no hesitanc y Problem Code: N40.0; Problem Code Type: ICD-10; Not Available [facility] 3 04:17:11 Acute upper respirat ory infectio n 12471819 Completed 201603/13/2017 Problem Code: J06.9; Problem Code Type: ICD-10; Not Available [facility] 3 04:17:11 Acute pharyngi tis 176166238 Completed 201603/13/2017 Problem Code: J02.9; Problem Code Type: ICD-10; Not Available [facility] 3 04:17:11 Allergic rhinitis 59904158 Active 2016 Problem Code: J30.9; Problem Code Type: ICD-10; Not Available [facility] 3 04:17:11 Dysphoni a 71463805 Active 2016 Problem Code: R49.0; Problem Code Type: ICD-10; Not Available [facility] 3 04:17:11 Visual disturba nce 15027414 Active 201712/18/19 18 - Comments only - Rusty Moore MD - I think he should establis h with any optometr ists, it might be best to simply tries a series of more expensiv e glasses without bifocal feature. Problem Code: H53.9; Problem Code Type: ICD-10; Not Available [facility] 3 04:17:11 Arthropa thy of right shoulder 40755172555 515630 Active 201712/18/19 18 - Comments only - Rusty Moore MD - His range of motion is terrible and he might benefit from arthropl asty. Refer, see letter. Problem Code: M12.811; Problem Code Type: ICD-10; Not Available [facility] 3 04:17:12 Plantar fascial fibromat osis 55543169 Active 201704/19/20 18 - Comments only - Nasreen Rosario NATURAL RESOURCES SPECIALIST - Discusse d stretchi ng using a tennis ball to roll over bottom of the foot. Continue with good shoe support and inserts. Ice as needed. If not improvin g we can refer to PT. Tylenol or Ibuprofe n as needed. He feels it is starting to improve already with new sneakers and inserts. F/U PRN. Problem Code: M72.2; Problem Code Type: ICD-10; Not Available [facility] 3 04:17:12 Adult health examinat ion Active 201706/02/20 22 - Comments only - Rusty Moore MD - Tetanus booster, flu and Prevnar vaccines now Problem Code: Z00.00; Problem Code Type: ICD-10; Not Available [facility] 3 04:17:12 Anemia 650781245 Active 2017 Problem Code: D64.9; Problem Code Type: ICD-10; Not Available [facility] 3 04:17:12 Onychomy cosis due to dermatop hyte 507408489 Active 2018 Problem Code: B35.1; Problem Code Type: ICD-10; Not Available [facility] 3 04:17:12 Benign neoplasm of colon 85057103 Active 2018 Problem Code: D12.6; Problem Code Type: ICD-10; Not Available [facility] 3 04:17:12 Exposure to communic able disease Completed 201912/21/2019 Problem Code: Z20.9; Problem Code Type: ICD-10; Not Available [facility] 3 04:17:12 Ed mcpherson hearing loss 97028475 Active 201902/01/20 21 - Comments only - Rusty Moore MD - [facility] ed to make sure he has well function ing hearing aids Problem Code: H91.93; Problem Code Type: ICD-10; Not Available [facility] 3 04:17:13 Anxiety 28564846 Active 202001/16/20 23 - Comments only - Rusty Moore MD - SSRIs but did not meaningf ully help him and returned it keep his medicine s to at minimum. Problem Code: F41.8; Problem Code Type: ICD-10; Not Available [facility] 3 04:17:13 Acute upper respirat ory infectio n 29197200 Completed 202105/10/2022 05/09/20 22 - Comments only - Alicia BRYANT - Benign exam. Negative for COVID and flu. Benign exam. Recommen ded Mucinex over-the -counter . Plenty of rest and fluids. Discusse d signs and symptoms to follow-u p. Patient and family understa nd and agree with plan. Problem Code: J06.9; Problem Code Type: ICD-10; Not Available [facility] 3 04:17:13 Fatigue 28038172 Completed 202201/16/2023 Problem Code: R53.83; Problem Code Type: ICD-10; Not Available [facility] 3 04:17:13 Mild neurocog nitive disorder 682310832 Completed 201504/29/2023 12/18/19 18 - Comments only - Rusty Moore MD - No progress ion Problem Code: G31.84; Problem Code Type: ICD-10; Not Available [facility] 3 04:17:16 Gastroes ophageal reflux disease 388498197 Completed 200104/29/2023 Problem Code: 530.81; Problem Code Type: ICD-9; Not Available [facility] 3 04:17:16 Sleep apnea 66729770 Completed 201312/06/2015 Not Available [facility] 3 04:17:17 Alzheime r's disease 99613372 Completed 201504/29/2023 02/23/20 20 - Comments only - Rusty Moore MD - His dementia has progress ed very signific antly since last year. Luz Maria been some denial last year but recogniz e this year that he has signific ant problems . I am not restarti ng his Meprazol e which she did not tolerate . The specific language difficul ties suggest multi-in farct dementia but an MRI only showed typical white matter disease last year. This is very signific antly complica micheal by his hearing loss which is moderate to profound . It is critical that he get a hearing aid. I had a long conversa tion with Luz Maria on the phone about planning , getting resource s, reading the 36-hour day book. I implored Rodo to let her help him more with the finances . Rodo is really not depresse d, some of his positive answers, because he is upset about the financia l aspect not so much true depressi on. Reviewed use interlud es it rules. He is already physical ly quite active but [place] are [place] They get out for [employer] and I reviewed the critical importan ce of yashira thurman social interact ion and stimulat ing his brain more. Already done metaboli c studies. They are agreeabl e to a referral to the neurolog ist and I am going to send him to Dr. Murphy. Problem Code: G30.9; Problem Code Type: ICD-10; MD [address], [place], [address] , [facility]. 4 14:33:23 Migraine 87490555 Completed 200312/06/2015 Problem Code: 346.90; Problem Code Type: ICD-9; Not Available [facility] 3 04:17:20 Removal of suture Completed 201704/16/2018 Problem Code: Z48.02; Problem Code Type: ICD-10; Not Available [facility] 3 04:17:20 Chest pain 86111113 Completed Problem Code: R07.89; Problem Code Type: ICD-10; Not Available [facility] 3 04:17:21 Hyperten sive disorder 56850010 Completed 200104/29/2023 Not Available [facility] 3 04:17:21 Impotenc e Completed 201304/29/2023 Not Available [facility] 3 04:17:22 Anxiety disorder 286328211 Completed 201304/29/2023 Not Available [facility] 3 04:17:22 Dog bite Completed 201405/17/2015 Not Available [facility] 3 04:17:22 Alzheime r's disease 26483625 Active 202302/23/20 20 - Comments only - Rusty Moore MD - His dementia has progress ed very signific antly since last year. Luz Maria been some denial last year but recogniz e this year that he has signific ant problems . I am not restarti ng his Meprazol e which she did not tolerate . The specific language difficul ties suggest multi-in farct dementia but an MRI only showed typical white matter disease last year. This is very signific antly complica micheal by his hearing loss which is moderate to profound . It is critical that he get a hearing aid. I had a long conversa tion with Luz Maria on the phone about planning , getting resource s, reading the 36-hour day book. I implored Rodo to let her help him more with the finances . Rodo is really not depresse d, some of his positive answers, because he is upset about the financia l aspect not so much true depressi on. Reviewed use interlud es it rules. He is already physical ly quite active but they are too isolated [place]. They get out for [email or web address] and I reviewed the critical importan ce of maximizabner thurman social interact ion and stimulat ing his brain more. Already done metaboli c studies. They are agreeabl e to a referral to the neurolog ist and I am going to send him to Dr. Murphy. Problem Code: G30.9; Problem Code Type: ICD-10; RUSTY MOORE MD [address], [place], [address] , [facility]. 4 14:33:23 Notes:*Problem Name: Esophag itis, mild *Problem Status: active *Comments: 06/02/2022 - Comments only - Rusty Moore MD - He has had no recent symptoms of heartburn *Problem Code: K20.9 *Problem Code Type: ICD-10 *Note Date: 02/07/2019 *Problem Name: Exerc Margaret Asthma *ICD-10 Codes: *Problem Status: inactive *Comments: *Note Date: 12/19/2003 Problem Notes None recorded. Medical Equipment None Reported. Allergies Allergen ID Allergen Name Allergen Category Reaction Reaction Severity Criticality Documentation Date Start Date Code Code System Note Provider Name and Address Organization Details Recorded Time 11062 losartan potassium medicatio n Not available Not available Not available 06/12/20232018 82470 0 RxNorm Not Available [facility] 3 16:26:12 Medications Name Sig Start Date Stop Date Status Note LastModified by Organization Details LastModified Time Prescript ion - Renewal 04/20 completed CRESTOR 5 MG ORAL TABLET, VIAGRA 100 MG ORAL TABLET, OMEPRAZO LE Not Available Not Available Not Available losartan 50 mg tablet Take 1 tab by mouth daily 2016 active Not Available Not Available Not Avai lable Augmentin 875 mg-125 mg tablet Take 1 tablet by mouth twice daily. 02/26 completed Not Available Not Available Not Available donepezil 10 mg tablet One tab daily PO 02/11 completed Not Available Not Available Not Available sertralin e 100 mg tablet Take 1 tablet by mouth once a day 12/12 completed Not Available Not Available Not Available Nexium 40 mg capsule,d elayed release Take 1 by mouth daily 12/05 completed Not Available Not Available Not Available omeprazol e 40 mg capsule,d elayed release Take 1 tab by mouth daily. 05/20 completed Not Available Not Available Not Available simvastat in 40 mg tablet Take 1tablet by mouth at bedtime 05/17 completed Not Available Not Available Not Available Nexium 20 mg capsule,d elayed release Take 1 cap by mouth daily 12/16 completed Not Available Not Available Not Available losartan 100 mg-hydroc hlorothia zide 25 mg tablet Take 1 tablet by mouth once a day 04/16 completed Not Available Not Available Not Available simvastat in 20 mg tablet Take 1 by mouth at bedtime 12/05 completed Not Available Not Available Not Available niacinami de 500 mg tablet one tab twice daily by mouth 02/11 completed Not Available Not Available Not Available omeprazol e 20 mg capsule,d elayed release TAKE 1 CAPSULES BY MOUTH EVERY DAY 2023 active Not Available Not Available Not Avai lable lorazepam 1 mg tablet take 1 tablet by mouth 60 minutes prior to MRI: (do not drive after taking this) 05/13 completed Not Available Not Available Not Available Viagra 100 mg tablet Take 1 tablet by mouth as needed 01/31 completed pt asked for 25 tablets only Not Available Not Available Not Available Nasonex 50 mcg/actua tion [place] 1 spray each nostril bid 07/20 completed Not Available Not Available Not Available ipratropi um bromide 42 mcg (0.06 %) nasal spray 2 sprays nasally daily 05/13 completed Not Available Not Available Not Available losartan 50 mg-hydroc hlorothia zide 12.5 mg tablet Take 1 tablet by mouth once a day 2023 active Not Available Not Available Not Avai lable fluocinon dinora 0.05 % topical cream tid 05/13 completed Not Available Not Available Not Available losartan 100 mg tablet Take 1 tab by mouth daily 2016 active Not Available Not Available Not Avai lable fluticaso ne propionat e 50 mcg/actua tion nasal spray,[employer] 2 sprays each nostril daily 12/16 completed Not Available Not Available Not Available sertralin e 50 mg tablet Take 1 tablet by mouth once a day 03/21 completed Not Available Not Available Not Available Benicar 40 mg tablet Take 1 by mouth daily 05/17 completed Not Available Not Available Not Available Benicar HCT 40 mg-12.5 mg tablet Take 1 by mouth daily 02/21 completed Not Available Not Available Not Available Crestor 5 mg tablet Take 1 tablet by mouth once a day 06/09 completed Not Available Not Available Not Available cetirizin e 10 mg chewable tablet Take 1 by mouth daily 12/16 completed Not Available Not Available Not Available Flovent HFA 110 mcg/actua tion aerosol inhaler Inhale 2 puff by mouth twice a day 08/19 completed pt reports he stopped it as he is feeling better Not Available Not Available Not Available Nexium 40 mg intraveno us solution 1tab qd 2013 active Not Available Not Available Not Avai lable losartan 100 mg-hydroc hlorothia zide 12.5 mg tablet Take 1 tablet by mouth daily,re places straight losartan 2016 active Not Available Not Available Not Avai lable fluticaso ne propionat e 2sprays qd 2013 active Not Available Not Available Not Avai lable ProAir HFA 90 mcg/actua tion aerosol inhaler Inhale 2 puffs by mouth every 4 hours as needed 12/05 completed Not Available Not Available Not Available Nasacort 55 mcg nasal spray aerosol 1 spray in each nostril daily 12/05 completed Not Available Not Available Not Available Vitals Date Recorded Body height Body mass index (BMI) Body weight Body temperature Respiratory rate Oxygen saturation Oxygen saturation in Arterial blood by Pulse oximetry Heart rate Systolic blood pressure Diastolic blood pressure Provider Name and Address Organization Details Last Updated DateTime 4 165.1 cm 24.6 kg/m2 33879.3 7 g 97.3 [degF] 18 /min 96 % 96 % 68 /min 130 mm[Hg] 70 mm[Hg] MARSHALL LARKIN LPN [facility] 14:12:51 Social History Question Answer Notes LastModified by Organizat ion Details LastModified Time Tobacco Smoking Status Never Smoker MARSHALL LARKIN LPN [facility], [facility] 04/20/2024 14:14:22 What Was The Date Of Your Most Recent Tobacco Screening? 04/20/2024 [email or web address] Information not available 04/20/2024 Sex: Male Functional Status None recorded. Mental Status None recorded. Family History Relationship Description Onset Age of this Age Resolved Age Notes LastModified by Organization Details LastModified Time Father Family history of heart failure [email or web address] Not available 2022 04:00:59 Mother Family history of heart failure [email or web address] Not available 2022 04:00:59 Notes:*Problem: Family Histo ry of: Other: Yes Heart Disease Mother and Father. Medical History No medical history recorded. Immunizations Vaccine Type Date Status Provider Name and Address Organization Details Recorded Time Tdap 04/27/2012 completed Not Available [facility] 05:14:26 Tdap 06/02/2022 completed Not Available [facility] 05:14:26 Pneumococcal conjugate PCV 13 12/06/2015 completed Not Available [facility] 06/12/2023 05:14:26 Influenza, split virus, trivalent, preservative 05/17/2015 completed Not Available [facility] 06/12/2023 05:14:26 Influenza, split virus, quadrivalent, PF 05/13/2019 completed Not Available [facility] 06/12/2023 05:14:27 Influenza, split virus, quadrivalent, preservative 04/30/2018 completed Not Available [facility] 06/12/2023 05:14:27 Influenza, high-dose, quadrivalent, PF 06/02/2022 completed Not Available [facility] 06/12/2023 05:14:28 COVID-19, mRNA, LNP-S, PF, 100 mcg/0.5mL dose or 50 mcg/0.25mL dose 03/14/2022 completed Not Available [facility] 06/12/2023 05:14:28 SARS-COV-2 (COVID-19) vaccine, UNSPECIFIED 08/25/2020 completed Not Available [facility] 06/12/2023 05:14:28 SARS-COV-2 (COVID-19) vaccine, UNSPECIFIED 09/16/2020 completed Not Available [facility] 06/12/2023 05:14:28 SARS-COV-2 (COVID-19) vaccine, UNSPECIFIED 05/21/2021 completed Not Available [facility] 06/12/2023 05:14:28 COVID-19, mRNA, LNP-S, bivalent, PF, 30 mcg/0.3 mL dose 06/02/2022 completed Not Available [facility] 06/12/20 05:14:29 pneumococcal polysaccharide PPV23 12/16/2017 completed Not Available [facility] 2022 05:14:29 pneumococcal polysaccharide PPV23 05/03/2007 completed Not Available [facility] 2022 05:14:29 influenza, unspecified formulation 05/03/2020 completed Not Available [facility] 06/12/2023 05:14:30 Past Encounters Encounter ID Performer Location Encounter Start Date Encounter Closed Date Diagnosis/Indication Diagnosis SNOMED-CT Code Diagnosis ICD10 Code [id number] RUSTY MOORE MD [address] [address] 04/20/2024 14:02:39 04/20/2024 16:01:20 Anxiety 09701703 F41.9 Essential hypertension 17290914 I10 Essential tremor 4737864 09 G25.0 Alzheimer's disease 2692 9004 G30.9 Health Concerns Section Related Observation LastModified by Organization Detai ls LastModified Time None Recorded Concern Status LastModified by Organization Details LastModified Time None Recorded Payers Encounter Date Sequence Insurance Name Policy Number Policy Jerez Covered Member ID Jerez Member ID Guarantor Name 04/20/2024 1 [place]ARE [place]: [employer] Rodo Malave [id number] Rodo Malave 04/20/2024 2 [facility] OPTIONS Rodo Malave [id number] Rodo Malave Notes Date Note Type Note Provider Name and Address Organization Details Recorded Time 04/20/2024 text/html HPI Notes: Follow-up Alzheimer disease Physically, Kiet remains well. He still actively recreates, I think he is still playing pickle ball and his physical skills are unremarkable at age 84. He also continues to drive and resents any suggestion that his driving could be impaired. His language skills are impaired out of proportion to any of his other deficits and is very difficult for him to communicate effectively or clearly in the office or elsewhere. He denies ever having a problem. Just recently his car had a flat tire, he was able to negotiate getting this fixed. He is here today with his ex- Celestina who watches over him on a daily basis. Pao seems to be in some degree of denial regarding the depth of kiet's cognitive deficits. I had a call from his son concerned about the driving. Kiet does best answering very direct simple questions and he seems to have no chest pain or heaviness, depression, loss of appetite, abdominal pain, urinary difficulties or, headache weakness or numbness. RUSTY MOORE MD [address], [place], [address], [facility]. 04/20/2024 17:29:57
--- OUTSIDE RECORDS SUMMARY | 2024-04-20 20:31 | XMS_ITS | Data Portability ---
Author Organization [facility], [facility] Address [address] [place] [address] Care Team Providers Care Nurse Special Name Role Phone RUSTY MOORE Primary Care Provider Assessment Encounter Date Assessment Date Assessment LastModified by Organization Details LastModified Time 08/19/2023 08/19/2023 Physically quite well but his cognition slowly declined. He declines flu shot and COVID booster and I explained why I recommend both of these. He will reconsider. [email or web address] Not available 08/19/2023 12:29:19 Plan of Treatment Reminders Order Date Submit Date Provider Last Modified By Organization Details Last Modified Time Details Appointments Follow Up 30 2023 02:00P M Not available Not available Not available Lab BMP, serum or plasma 2023 024 [email or web address] [facility] (Registration), [address] [place] [address] [place], [address], 04/20/2024 16:33:[address] refer l - Call guerline garcia Jennifer herr for appt [phone] 2023 024 [facility], [address] [place] [address] , [facility], [place], [address], 04/20/2024 18:25:15 Procedures None recorde d. Surgeries None recorde d. Imaging None recorde d. Medication Orders None recorde d. Patient TargetsNo targets recorded. Patient InstructionsNo instructions recorded. 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 [email or web address] Not Available 04/18 11:17:06 Result Notes None recorded. 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 Problem Code: J45.990; Problem Code Type: ICD-10; Not Available [facility] 3 04:17:09 Generali zed anxiety disorder 01289583 Active 2013 Problem Code: F41.1; Problem Code Type: ICD-10; Not Available [facility] 3 04:17:10 [facility] hyperten willie 49798442 Active 200101/16/20 23 - Comments only - Rusty Moore MD - BP well controll ed, I am checking labs today Problem Code: I10; Problem Code Type: ICD-10; Not Available [facility] 3 04:17:10 Hyperlip idemia 79289851 Active 200302/01/20 21 - Comments only - Rusty Moore MD - At age 89 with no evidence for vascular disease I think we should stop his Crestor. I want to minimize the number of meds. Problem Code: E78.5; Problem Code Type: ICD-10; Not Available [facility] 3 04:17:10 Gastroes ophageal reflux disease without esophagi tis 433774377 Active 200109/17/19 23 - Comments only - Rusty Moore MD - Asymptom atic on a PPI , reminded him to take a multivit sepulveda with this Problem Code: K21.9; Problem Code Type: ICD-10; Not Available [facility] 3 04:17:10 Erectile dysfunct ion 507330337 Active 2013 Problem Code: F52.21; Problem Code Type: ICD-10; Not Available [facility] 3 04:17:10 Actinic keratosi s 894086173 Active 2013 Problem Code: L57.0; Problem Code Type: ICD-10; Not Available [facility] 3 04:17:10 Cerebral cyst 94230945 Active 2014 Problem Code: G93.0; Problem Code Type: ICD-10; Not Available [facility] 3 04:17:10 [facility] tremor 690804104 Active 201401/13/20 15 - Comments only - Rusty Moore MD - Ressumaggi , reviewed possible rx but it is too mild. Problem Code: G25.0; Problem Code Type: ICD-10; Not Available [facility] 3 04:17:10 Low back pain 795480338 Completed 201405/22/2015 Problem Code: M54.5; Problem Code Type: ICD-10; Not Available [facility] 3 04:17:11 Benign prostati c hyperpla jose miguel 365168991 Active 201612/18/19 18 - Comments only - Rusty Moore MD - Stable, no hesitanc y Problem Code: N40.0; Problem Code Type: ICD-10; Not Available [facility] 3 04:17:11 Acute upper respirat ory infectio n 08948303 Completed 201603/13/2017 Problem Code: J06.9; Problem Code Type: ICD-10; Not Available [facility] 3 04:17:11 Acute pharyngi tis 442723833 Completed 201603/13/2017 Problem Code: J02.9; Problem Code Type: ICD-10; Not Available [facility] 3 04:17:11 Allergic rhinitis 49838237 Active 2016 Problem Code: J30.9; Problem Code Type: ICD-10; Not Available [facility] 3 04:17:11 Dysphoni a 37506087 Active 2016 Problem Code: R49.0; Problem Code Type: ICD-10; Not Available [facility] 3 04:17:11 Visual disturba nce 67855368 Active 201712/18/19 18 - Comments only - Rusty Moore MD - I think he should establis h with any optometr ists, it might be best to simply tries a series of more expensiv e glasses without bifocal feature. Problem Code: H53.9; Problem Code Type: ICD-10; Not Available [facility] 3 04:17:11 Arthropa thy of right shoulder 59993917995 534178 Active 201712/18/19 18 - Comments only - Rusty Moore MD - His range of motion is terrible and he might benefit from arthropl asty. Refer, see letter. Problem Code: M12.811; Problem Code Type: ICD-10; Not Available [facility] 3 04:17:12 Plantar fascial fibromat osis 53567693 Active 201704/19/20 18 - Comments only - Nasreen Rosario BEAD STRINGER - Discusse d stretchi ng using a [...] M72.2; Problem Code Type: ICD-10; Not Available [facility] 3 04:17:12 Adult health examinat ion Active 201706/02/20 22 - Comments only - Rusty Moore MD - Tetanus booster, flu and Prevnar vaccines now Problem Code: Z00.00; Problem Code Type: ICD-10; Not Available [facility] 3 04:17:12 Anemia 946025710 Active 2017 Problem Code: D64.9; Problem Code Type: ICD-10; Not Available [facility] 3 04:17:12 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 Problem Code: B35.1; Problem Code Type: ICD-10; Not Available [facility] 3 04:17:12 Benign neoplasm of colon 51860669 Active 2018 Problem Code: D12.6; Problem Code Type: ICD-10; Not Available [facility] 3 04:17:12 Exposure to communic able disease Completed 201912/21/2019 Problem Code: Z20.9; Problem Code Type: ICD-10; Not Available [facility] 3 04:17:12 Bilatera l hearing loss 96428550 Active 201902/01/20 21 - Comments only - Rusty Moore MD - [facility] ed to make sure he has well function ing hearing aids Problem Code: H91.93; Problem Code Type: ICD-10; Not Available [facility] 3 04:17:13 Anxiety 24576405 Active 202001/16/20 23 - Comments only - Rusty Moore MD - SSRIs but did not meaningf ully help him and returned it keep his medicine s to at minimum. Problem Code: F41.8; Problem Code Type: ICD-10; Not Available [facility] 3 04:17:13 Acute upper respirat ory infectio n 16183790 Completed 202105/10/2022 05/09/20 22 - Comments only - Alicia BRYANT - Benign exam. Negative for COVID and flu. Benign exam. Recommen ded Mucinex over-the -counter . Plenty of rest and fluids. Discusse d signs and symptoms to follow-u p. Patient and family understa nd and agree with plan. Problem Code: J06.9; Problem Code Type: ICD-10; Not Available [facility] 3 04:17:13 Fatigue 16383313 Completed 202201/16/2023 Problem Code: R53.83; Problem Code Type: ICD-10; Not Available [facility] 3 04:17:13 Mild neurocog nitive disorder 996100769 Completed 201504/29/2023 12/18/19 18 - Comments only - Rusty Moore MD - No progress ion Problem Code: G31.84; Problem Code Type: ICD-10; Not Available [facility] 3 04:17:16 Gastroes ophageal reflux disease 088123702 Completed 200104/29/2023 Problem Code: 530.81; Problem Code Type: ICD-9; Not Available [facility] 3 04:17:16 Sleep apnea 29207135 Completed 201312/06/2015 Not Available [facility] 3 04:17:17 Alzheime r's disease 15621800 Completed 201504/29/2023 02/23/20 20 - Comments only [...] [place]. They get out for [facility] and I reviewed the critical importan ce of maximmichelle thurman social interact ion and stimulat ing his brain more. Already done metaboli c studies. They are agreeabl e to a referral to the neurolog ist and I am going to send him to Dr. Murphy. Problem Code: G30.9; Problem Code Type: ICD-10; RUSTY MOORE MD [address], [place], [address] , [facility]. 4 14:33:23 Migraine 82451344 Completed 200312/06/2015 Problem Code: 346.90; Problem Code Type: ICD-9; Not Available [facility] 3 04:17:20 Removal of suture Completed 201704/16/2018 Problem Code: Z48.02; Problem Code Type: ICD-10; Not Available [facility] 3 04:17:20 Chest pain 47088946 Completed Problem Code: R07.89; Problem Code Type: ICD-10; Not Available [facility] 3 04:17:21 Hyperten sive disorder 32943528 Completed 200104/29/2023 Not Available [facility] 3 04:17:21 Impotenc e Completed 201304/29/2023 Not Available [facility] 3 04:17:22 Anxiety disorder 821025796 Completed 201304/29/2023 Not Available [facility] 3 04:17:22 Dog bite Completed 201405/17/2015 Not Available [facility] 3 04:17:22 Alzheime r's disease 99999556 Active 202302/23/20 20 - Comments only - Rusty Moore MD - His dementia has progress ed very signific antly since last year. Luz Maria been some denial last year but recogniz e this year that he has signific ant problems . I am not restarti olman his Meprazol e which she did not [...] [place] They get out for [facility] and I reviewed the critical importan ce of yashira thurman social interact ion and stimulat ing his brain more. Already done metaboli c studies. They are agreeabl e to a referral to the neurolog ist and I am going to send him to Dr. Murphy. Problem Code: G30.9; Problem Code Type: ICD-10; MD [address], [place], [address] , [facility] 4 14:33:23 Notes:*Problem Name: Esophag itis, mild *Problem Status: active *Comments: 06/02/2022 - Comments only - Rusty Moore MD - He has had no recent symptoms of heartburn *Problem Code: K20.9 *Problem Code Type: ICD-10 *Note Date: 02/07/2019 *Problem Name: Exerc Margaret Asthma *ICD-10 Codes: *Problem Status: inactive *Comments: *Note Date: 12/19/2003 Problem Notes None recorded. Procedures Surgical History None recorded. Imaging Results Imaging Date Name Status LastModified by Organiz ation Details LastModified Time 01/11/2019 MRI, head completed [email or web address] Information no t available 04/18/2024 11:17:06 Procedure Notes None recorded. Medical Equipment None Reported. Allergies Allergen ID Allergen Name Allergen Category Reaction Reaction Severity Criticality Documentation Date Start Date Code Code System Note Provider Name and Address Organization Details Recorded Time 72009 losartan potassium medicatio n Not available Not available Not available 06/12/20232018 97030 0 RxNorm Not Available [facility] 3 16:26:12 Medications Name Sig Start Date [...] Available Not Available Nasonex 50 mcg/actua tion [place] 1 spray each nostril bid 07/20 completed Not Available Not Available Not Available ipratropi um bromide 42 mcg (0.06 %) nasal spray 2 sprays nasally daily 05/13 completed Not Available Not Available Not Available losartan 50 mg-hydroc hlorothia zide 12.5 mg tablet Take 1 tablet by mouth once a day 2023 active Not Available Not Available Not Avai lable fluocinon dniora 0.05 % topical cream tid 05/13 completed [...] Not Available Vitals Date Recorded Body height Oxygen saturation Oxygen saturation in Arterial blood by Pulse oximetry Heart rate Provider Name and Address Organization Details Last Updated DateTime 08/19/2023 165.1 cm 95 % 95 % 61 /min MULU REYNOSO MA [facility] 08/19/2023 11:41:27 Date Recorded Body mass index (BMI) Body weight Systolic blood pressure Diastolic blood pressure Provider Name and Address Organization Details Last Updated DateTime 08/19/2023 24.8 kg/m2 50912.54 g 135 mm[Hg] 80 mm[Hg] RUSTY MOORE MD [address], [place], [address] , [facility] 08/19/2023 12:05:53 Date Recorded Body height Body mass index (BMI) Body weight Body temperature Respiratory rate Oxygen saturation Oxygen saturation in Arterial blood by Pulse oximetry Heart rate Systolic blood pressure Diastolic blood pressure Provider Name and Address Organization Details Last Updated DateTime 165.1 cm 24.6 kg/m2 26774.3 7 g 97.3 [degF] 18 /min 96 % 96 % 68 /min 130 mm[Hg] 70 mm[Hg] MARSHALL LARKIN LPN [facility] 14:12:51 Social History Question Answer Notes LastModified by Organizat ion Details LastModified Time Tobacco Smoking Status Never Smoker MARSHALL LARKIN LPN [facility], [facility] 04/20/2024 14:14:22 What Was The Date Of Your Most Recent Tobacco Screening? 04/20/2024 [email or web address] Information not available 04/20/2024 Sex: Male Functional Status None recorded. Mental Status None recorded. Family History Relationship Description Onset Age of this Age Resolved Age Notes LastModified by Organization Details LastModified Time Father Family history of heart failure [email or web address] Not available 2022 04:00:59 Mother Family history of heart failure [email or web address] Not available 2022 04:00:59 Notes:*Problem: Family Histo ry of: Other: Yes Heart Disease Mother and Father. Medical History No medical history recorded. Immunizations Vaccine Type Date Status Provider Name and Address Organization Details Recorded Time Tdap 04/27/2012 completed Not Available [facility] 05:14:26 Tdap 06/02/2022 completed Not Available [facility] 05:14:26 Pneumococcal conjugate PCV 13 12/06/2015 completed Not Available [facility] 06/12/2023 05:14:26 Influenza, split virus, trivalent, preservative 05/17/2015 completed Not Available [facility] 06/12/2023 05:14:26 Influenza, split virus, quadrivalent, PF 05/13/2019 completed Not Available [facility] 06/12/2023 05:14:27 Influenza, split virus, quadrivalent, preservative 04/30/2018 completed Not Available [facility] 06/12/2023 05:14:27 Influenza, high-dose, quadrivalent, PF 06/02/2022 completed Not Available [facility] 06/12/2023 05:14:28 COVID-19, mRNA, LNP-S, PF, 100 mcg/0.5mL dose or 50 mcg/0.25mL dose 03/14/2022 completed Not Available [facility] 06/12/2023 05:14:28 SARS-COV-2 (COVID-19) vaccine, UNSPECIFIED 08/25/2020 completed Not Available [facility] 06/12/2023 05:14:28 SARS-COV-2 (COVID-19) vaccine, UNSPECIFIED 09/16/2020 completed Not Available [facility] 06/12/2023 05:14:28 SARS-COV-2 (COVID-19) vaccine, UNSPECIFIED 05/21/2021 completed Not Available [facility] 06/12/2023 05:14:28 COVID-19, mRNA, LNP-S, bivalent, PF, 30 mcg/0.3 mL dose 06/02/2022 completed Not Available [facility] 06/12/20 05:14:29 pneumococcal polysaccharide PPV23 12/16/2017 completed Not Available [facility] 2022 05:14:29 pneumococcal polysaccharide PPV23 05/03/2007 completed Not Available [facility] 2022 05:14:29 influenza, unspecified formulation 05/03/2020 completed Not Available [facility] 06/12/2023 05:14:30 Past Encounters Encounter ID Performer Location Encounter Start Date Encounter Closed Date Diagnosis/Indication Diagnosis SNOMED-CT Code Diagnosis ICD10 Code [id number] RUSTY MOORE MD [address] [address] 08/19/2023 11:30:03 08/19/2023 12:13:05 Alzheimer's disease 98265457 G30.9 Essential hypertension 03589045 I10 [id number] RUSTY MOORE MD [facility] [address] [place] [address] 04/20/2024 14:02:39 04/20/2024 16:01:20 Anxiety 56361163 F41.9 Essential hypertension 13396610 I10 Essential tremor 9157113 09 G25.0 Alzheimer's disease 2692 9004 G30.9 Health Concerns Section Related Observation LastModified by Organization Detai ls LastModified Time None Recorded Concern Status LastModified by Organization Details LastModified Time None Recorded Advance Directives Directive None Recorded Payers Encounter Date Sequence Insurance Name Policy Number Policy Jerez Covered Member ID Jerez Member ID Guarantor Name 08/19/2023 1 [place] [employer] Rodo Malave [id number] Rodo Malave 08/19/[address] [facility] - OPTIONS Rodo Malave [id number] Rodo Malave 04/20/2024 1 [place] [employer] Rodo Malave [id number] Rodo Malave 04/20/[address] [facility] - OPTIONS Rodo Malave [id number] Rodo Malave Notes Date Note Type Note Provider Name and Address Organization Details Recorded Time 08/19/2023 text/html HPI Notes: Follow-up Alzheimer's disease Kiet is now living in a cabin short ways from his ex Celestina Malave. She looks in on him daily, confirms that his pillbox is correct and takes care of most meals. He helps her out with physical chores like snow shoveling. They seem to have an excellent relationship. Celestina had not been on his HIPAA compliance less but they will have that today. I believe that his daughter Sonia is POA but I only have a local number for her and she is away seasonally. Rodo tends to repeat vert to a diatribe about that woman by which he means his more recent from whom he is . His speech is not very coherent except for very brief concrete answers. He denies having pain, chest pain, dyspnea or cough, acute illness. His appetite is good. He remains physically very active, riding his bike in the summer and walking regularly. He has not had recent heartburn or dysphagia. Denies having depression. He seems Colmer since has been seeing Pao regularly. MD [address], [place], [address], [facility] 08/19/2023 12:29:25 04/20/2024 text/html HPI Notes: Follow-up Alzheimer disease Physically, Kiet remains well. He still actively recreates, I think he is still playing [employer] ball and his physical skills are unremarkable [...] urinary difficulties or, headache weakness or numbness. MD [address], [place], [address], [facility]. 04/20/2024 17:29:57
--- OUTSIDE RECORDS SUMMARY | 2024-04-20 20:31 | XMS_ITS | Encounter Summary ---
Author Organization [facility] Address [address] [place] [address] Care Team Providers Care Derrick Helper Name Role Phone Todd Shen MD Primary Care Provider Unavail able Reason for Visit * Reason Comments Mohs Consult SCC- Left Parietal S calp Encounter Details Date Type Department Care Team (Late st Contact Info) Description 01/04/2013 8:45 EDT Office Visit [facility] Dermatology 5th Floor [facility] [address], [place] [id number] Jaiden Watson MD [address] [place] [id number] Squamous cell carcinoma of scalp (Primary Dx) Social History Tobacco Use Types Packs/Day Years Used Date Smoking Tobacco: Never Assessed Sex and Gender Information Value Date Recorded Sex Assigned at Not on file Gender Identity Not on file Sexual Orientation Not on file documented as of this encounter Patient Instructions * Patient Instructions* Jaiden Watson MD - 01/04/2013 9:18 EDT PATIENT INSTRUCTIONS FOR MOHS MICROSCOPICALLY CONTROLLED EXCISION Mohs micrographic surgery is a surgical procedure. Please bring someone with you for your surgery visit. Plan to spend at least two hours on the day of the surgery. In complicated cases you may be with us for much of the day. 1) Surgery appointment times are approximate. We do our best to remain on time, but surgery is unpredictable and your surgery may be delayed on occasion by up to an hour. 2) Plan not to be alone for at least 12 hours after surgery. 3) If you are taking Vitamin E, garlic, gingko, ginseng, or other unspecified herbal supplements please discontinue these one week prior to surgery. They can cause bleeding. 4) Stop mediation containing ibuprofen (Motrin, Advil) or naproxen (Aleve) one day prior to surgery. 5) If you are on coumadin or aspirin we will discuss with you whether or not to discontinue these prior to surgery. 6) The morning of surgery eat a normal breakfast and take any medications you normally take in the morning. Bring medication that will be needed during the day. 7) Wear clothing with buttons. Avoid pullover clothing. 8) Do not use cosmetics the day of surgery. 9) You will be given postoperative instruction following your procedure. Recommendations for Sun Protection Ultraviolet (UV) radiation is a known carcinogen (cancer-causing agent) and is primarily responsible for most skin cancers, including Basal Cell Carcinoma, Squamous Cell Carcinoma, and many Melanomas. UV radiation also rapidly ages the skin, leading to wrinkles, uneven color, and poor texture. Minimizing UV exposure has been shown in multiple studies to decrease the likelihood of developing cancers and pre-cancers of the skin, as well as improve overall appearance. To minimize UV exposure: 1) Avoid exposure to sunlight during the middle of the day (10am to 4pm). Seek shade when outside during these hours. Limit outdoor activities to medical claims processor and/or evening hours when the sunlight is less intense. Remember that UV is reflected from water and snow, and can pass through window glass. It is still possible to get burned during cloudy weather and in the winter months. You can check the forecast for the UV Index in your area at most weather sites online. If the UV index is 3 or higher, sun protection/avoidance is recommended. 2) Wear protective clothing. Hats with wide brims that cover the ears and neck, sunglasses, long-sleeved shirts, long pants, and closed-top shoes offer good protection. Many makers of outdoor clothing test their fabrics for UV Protection Factor (UPF), which is a guide to the level of protection a particular item of clothing should provide. In general, loose weaves (Cotton) and director medicare sales-colored fabrics offer less protection than tighter weaves or darker/thicker fabrics. It is possible to get a sunburn through clothing, especially if it is wet. 3) Use sunscreen on exposed areas. Choose a sunscreen that has a Sun Protection Factor (SPF) of 30+or higher. Apply the sunscreen generously (so much that you can barely rub it in) to exposed areas 30 minutes before sun exposure. Reapply every 2-3 hours, especially if you are in water or sweating.If you tend to break out from sunscreen, choose a sunscreen designed for Sensitive Skin and/or one with physical blocking agents, such as Zinc Oxide and Titanium Dioxide. For vigorous activity, look for Sport sunscreens, which are resistant to sweating. 4) Avoid artificial sources of UV, such as tanning beds or sun lamps. The UV emitted by these devices is just as damaging, if not more so, than natural sunlight. There is a well-documented increase in the incidence of all common skin cancers in frequent tanning bed users. Other considerations: Vitamin D: Exposure to UV light is one of the ways your body gets Vitamin D, a necessary nutrient. Other sources are from the diet and/or dietary supplements. If you are actively avoiding the sun, itmay be advisable to discuss Vitamin D supplementation with your Primary Care Provider (PCP). In general, taking a supplement of 1,000 to 2,000 International Units (IU) of Vitamin D3 is safe and well-tolerated in individuals who get minimal sun exposure and have normal kidney function. However, moreor less Vitamin D may be recommended, depending on your individual needs, and the use of such supplements should be discussed with your PCP. documented in this encounter Progress Notes * Jaiden Watson MD - 01/04/2013 0918 EDT MOHS EVALUATION NOTE Chief Complaint Patient presents with ??? Mohs Consult SCC- Left Parietal Scalp Subjective: Rodo Malave is a 72 y.o. 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 The patient is referred to consider Mohs surgery versus other treatment options. The patient notes that this lesionhas been present for about 1 year, and reports slow growth. It has been treated at least twice withcryosurgery. The patient???s risk factors for skin cancer include history of squamous cell carcinoma and ayala type I or II skin. Risk factors: Pacemaker/ICD: None Anticoagulants: None Total joint replacements/valves: None Allergies: Patient has no known allergies. Immunosuppression: None For patient's past medical history, past surgical history, medications, medication allergies, social history and family history please refer to the patients electronic record in [facility]. Objective: Complete physical examination of the affected area in the office today revealed a 1.3 cm x 1.0 cm gritty, papule located on the left and superior scalp. Careful examination of the draining lymph nodes revealed no suspicious adenopathy. Pathology: Outside Pathology Report Reviewed, Showing: invasive squamous cell carcinoma Assessment: - invasive squamous cell carcinoma Plan: Mr. Malave and I discussed the meaning of the diagnosis of skin cancer and the options for treatmentincluding curettage and electrodesiccation, radiation therapy, conventional excision, and excision by Mohs micrographic surgery. Due to the need for a high cure rate and optimum functional and aesthetic outcome, I feel that Mohs surgery is indicated. The risks of Mohs surgery and potential reconstructive surgery, including but not limited to, bleeding, scarring, infection, recurrence, injury to functionally or cosmetically important nerve structures and an unsatisfactory cosmetic result were reviewed. The patient was given an opportunity to ask questions, and I believe that all of his questions were answered satisfactorily. In addition the patient was provided with written material that describes the Mohs procedure and related matters. Mr. Malave understands that following Mohs surgery an operative repair may be required and may involve substantial suturing. We have jointly planned to have me repair the wound at the day of surgery. He understands that following reconstruction, if performed, many months may elapse before a decisioncan be made about the final cosmetic result, and that, in some cases a revision may be necessary tooptimize the outcome. I explained to Mr. Malave that in addition to the risk of recurrence from his skin cancer he has an increased risk of developing additional new skin cancers elsewhere. For that reason, follow up for ongoing skin surveillance examinations, after surgery, will be imperative. The pili cook has been scheduled to undergo surgery within the next two weeks. Note: None Jaiden Watson MD 01/04/2013 9:18 Jaiden Watson MD, [facility] [employer] [facility] of Dermatology [facility] * Celina Marcelo - 01/04/2013 0913 EDT A complete 12 point review of systems was obtained and reviewed. All systems are negative except for: itching, flaking/scaling skin, fatigue, headaches, congestion or sore throat, blurry eyes, easy bruising, heartburn, urinary frequency, anxious. Celina Marcelo 9:13 01/04/2013 documented in this encounter Plan of Treatment Not on file documented as of this encounter Visit Diagnoses Diagnosis Squamous cell carcinoma of scalp- Primary Squamous cell carcinoma of scalp and skin of neck documented in this encounter Historical Medications * This list may reflect changes made after this encounter. Medication Sig Dispensed Refills Start Date End Date esomeprazole (NEXIUM) 40 mg capsule Take 40 mg by mouth every morning before breakfast. olmesartan (BENICAR) 20 mg tablet Take 20 mg by mouth daily. added in this encounter Care Teams Derrick Helper Relationship Specialty Start Date End Date Todd Shen MD PCP - General 01/31/09 documented as of this encounter
--- OUTSIDE RECORDS SUMMARY | 2024-04-20 20:31 | XMS_ITS | Encounter Summary ---
Author Organization [facility] Address [address] [place] [address] Care Team Providers Care Ultrasound Technologist Sonographer Name Role Phone Todd Shen MD Primary Care Provider Unavail able Encounter Details Date Type Department Care Team (Late st Contact Info) Description 12/28/2009 Abstract [facility] Plastic, Reconstructive & Cosmetic Surgery - [address], [address] [place] [address] Todd Shen MD Social History Tobacco Use Types Packs/Day Years Used Date Smoking Tobacco: Never Assessed Sex and Gender Information Value Date Recorded Sex Assigned at Not on file Gender Identity Not on file Sexual Orientation Not on file documented as of this encounter Plan of Treatment Not on file documented as of this encounter Visit Diagnoses Not on filedocumented in this encounter Historical Medications * This list may reflect changes made after this encounter. Medication Sig Dispensed Refills Start Date End Date AMLODIPINE BESYLATE/BENAZEPRIL (LOTREL ORAL) Take by mouth. ROSUVASTATIN CALCIUM (CRESTOR ORAL) Take by mouth. added in this encounter Care Teams Ultrasound Technologist Sonographer Relationship Specialty Start Date End Date Todd Shen MD PCP - General 01/31/09 documented as of this encounter
--- OUTSIDE RECORDS SUMMARY | 2024-04-20 20:31 | XMS_ITS | Encounter Summary ---
Author Organization [facility] Address [address] [place] [address] Care Team Providers Care Manager Hiv Name Role Phone Unavailable Primary Care Provider Unavailabl e Encounter Details Date Type Department Care Team (Latest Contact Info) Description 01/30/2009 23:08 EDT - 01/30/2009 23:09 EDT Hospital Encounter [facility] - Other [address] [place] [address] Chris Melton, PRICE LISTER [address] [place] [address] Discharge Disposition: Home or Self Care Social History Tobacco Use Types Packs/Day Years Used Date Smoking Tobacco: Never Assessed Sex and Gender Information Value Date Recorded Sex Assigned at Not on file Gender Identity Not on file Sexual Orientation Not on file documented as of this encounter Discharge Disposition Disposition Code Departure Means Destination Home or Self Care documented in this encounter Plan of Treatment Not on file documented as of this encounter Procedures Procedure Name Priority Date/Time Associated Diagnosis Comments SURGICAL PATHOLOGY Routine 03/06/2009 0:00 EDT documented in this encounter Results * SURGICAL PATHOLOGY (03/06/2009 0:00 EDT) Pathology Report: SURGICAL PATHOLOGY REPORT ? Reports generated via electronic interface contain original data; ? however they are lacking the format of the original report. ? Caution should be taken when reading/interpreti ng unformatted reports. ? Name: ? LAFOE, GARETT B ? Accession #: ? [id number] ? : ? 1940 (Age: 69) ??M ? Collect Date: ? 03/06/2009 ? Location: ? [facility] ? Receive Date: ? 03/06/2009 ? Provider: RUSTY Ken MARTINEZ MD ? Copy to: CHRIS MELTON APRN ? Final Pathologic Diagnosis: ? Skin of cheek, right, excision: ? 1. ?Epidermal reparative change and dermal scar. ??See comment. ? 2. ? No residual invasive squamous cell carcinoma identified. ? Comment: ? No residual squamous cell carcinoma is identified. ??Present throughout the excision specimen are multiple scattered incidental actinic keratoses, some of ?? which are present at the peripheral margins. ??Deeper levels have been examined ?? on block (A3). ??(Dr. Carroll)/mpl ? Document reviewed and electronically signed by: ? Farrah Carroll MD ? Report ??Date: 03/12/2009 13:42 ? By the signature above, the attending physician certifies that he/she has ? personally conducted a gross and/or microscopic examination of the described ? specimens and rendered or confirmed the above diagnosis. ? Specimen(s) Received: ? SCC right cheek suture @ superior medial ? Clinical History: ? Clinical diagnosis code: 173.3 ? Gross Description: ? Received in formalin labelled Garett Malave and SCC right cheek is an ?? oriented elliptical excision of lee skin with a suture designating the superior medial aspect on one side measuring 0.4 cm from the nearest tip. ??The specimen ?? measures 2.5 cm from superior medial to inferior lateral, 0.8 cm from inferior ?? medial to superior lateral, and is excised to a depth of 0.5 cm. ??The inferior ?? medial aspect is inked blue and the superior lateral aspect is inked black. ??The specimen is serially sectioned from inferior lateral to superior medial and ? submitted entirely as follows: ? BLOCK BARTLETT ? A1 ?Inferior lateral tip reverse en face ? A2,A3 ?Central sections ? A4 ?Superior medial tip reverse en face ? (A. Lerner)/cjh ? End of Report ? [facility] 03/06/2009 03/06/2009 17: 11 EDT Rusty Yarbrough MD FACS PATHOLOGY OR DERABLES [facility] [address] [place] [address] documented in this encounter Visit Diagnoses Not on filedocumented in this encounter
--- OUTSIDE RECORDS SUMMARY | 2024-04-20 20:31 | XMS_ITS | Referral Summary ---
Author Organization [facility] Address [address] [place] [address] Care Team Providers Care Digital Production Artist Name Role Phone Todd Shen MD Primary [...] Active Active Problems No known active problems Social History Tobacco Use Types Packs/Day Years Used Date Smoking Tobacco: Never Assessed Interpersonal Safety Answer Date Record ed Physically Hurt Never 03/04/2020 Verbally Threaten Not on file 03/04/2020 Sex and Gender Information Value Date Recorded Sex Assigned at Not on file Gender Identity Not on file Sexual Orientation Not on file Last Filed Vital Signs Vital Sign Reading Time Taken Comments Blood Pressure 138/80 01/04/2013 0954 EDT Pulse 48 01/04/2013 0954 EDT Temperature 36.9 ??C (98.5 ??F) 01/04/2013 0954 EDT Respiratory Rate - - Oxygen Saturation - - Inhaled Oxygen Concentration - - Weight - - Height - - Body Mass Index - - Plan of Treatment Not on file Rodo Malave Personal/Family Self 1940 [facility] [place] [address] Rodo Malave Personal/Family Self 1940 [facility] [place] [address] Rodo Malave Personal/Family Self 1940 [facility] [place] [address] Rodo Malave Personal/Family Self 1940 [facility] [place] [address] Rodo Malave Personal/Family Self 1940 [address] [facility] [place] [address] Rodo Malave Personal/Family Self 1940 [facility] [place] [address] Rodo Malave Personal/Family Self 1940 [facility] [place] [address] Care Teams Digital Production Artist Relationship Specialty Start Date End Date Todd Shen MD PCP - General 01/31/09
--- OUTSIDE RECORDS SUMMARY | 2024-04-20 20:31 | XMS_ITS | Encounter Summary ---
Author Organization [facility] Address [address] [place] [address] Care Team Providers Care Exterminator Helper Name Role Phone Unavailable Primary Care Provider Unavailabl e Encounter Details Date Type Department Care Team (Late st Contact Info) Description 01/14/2007 10:03 EDT - 01/14/2007 11:59 EDT Hospital Encounter [facility] Perioperative Services- [facility] [address] [place] [address] Jaiden Liu MD Discharge Disposition: Home or Self Care Social History Tobacco Use Types Packs/Day Years Used Date Smoking Tobacco: Never Assessed Sex and Gender Information Value Date Recorded Sex Assigned at Not on file Gender Identity Not on file Sexual Orientation Not on file documented as of this encounter Discharge Disposition Disposition Code Departure Means Destination Home or Self Care documented in this encounter Progress Notes * Jaiden Liu MD - 01/14/2007 0000 EDT RE: NAME: GARETT MALAVE : 1940 INPATIENT UPDATE LETTER Admission Date: 01/14/2007 January 14, 2007 Hilaria Shen MD [address] [place] [address] [place] [address] Dear Hilaria: I saw Garett earlier in the week and reviewed his history and exercise study and felt diagnostic angiograms were the best choice for him from the standpoint of further defining his problem. Interestingly enough, he has no substantial disease. There is some ostial involvement of the circumflex, but certainly not flow limiting. At most, this is like 30% narrowed. The arteries are heavily calcified. Left ventricular function is normal, with an EF of probably 65%. I will have him take it easy for a week but then he can resume normal activity. I think with his risk factors, it probably would be durand to re-exercise him yearly and use his current exercise study as a baseline. If I can be of any further help, do not hesitate to call. Sincerely, Signed by Jaiden Liu Jr, MD 2007 09:40 James Liu Jr, Kati Liu Jr, MD Jaiden Liu Jr, MD -Jaiden Liu Jr, MD -ck Job ID: [id number] Doc ID: [id number] cc: MD Jaiden Adames Jr, MD documented in this encounter Plan of Treatment Not on file documented as of this encounter Procedures Procedure Name Priority Date/Time Associated Diagnosis Comments IMPORT EXPORT CLERK PROCEDURE 01/14/2007 12 :40 EDT PTT Routine 01/14/2007 10:30 EDT PROTIME Routine 01/14/2007 10:30 EDT COMPLETE BLOOD COUNT Routine 01/14/2007 10:30 EDT BUN Routine 01/14/2007 10:30 EDT CREATININE Routine 01/14/2007 10:30 EDT ELECTROLYTES Routine 01/14/2007 10:30 EDT documented in this encounter Results * IMPORT EXPORT CLERK PROCEDURE (01/14/2007 12:40 EDT) Anatomical Region Laterality Modality Other 01/14/2007 12:4 0 EDT Narrative 2007 9:44 EDT ?[facility] ? [address] ??[place] [address] ? [phone] ? [email or web address] ?Final Diagnostic Cardiovascular Catheterization Report ?--- SUMMARY OF RESULTS --- >> Diagnostic cardiac catheterization was performed without any significant complications. > Coronary angiography revealed mild luminal irregularities only, with a 30% ostial Circumflex taper. > The LV end diastolic pressure was normal. > Left ventriculography revealed normal left ventricular function. ??Regional wall motion abnormalities were absent. The ventriculogram revealed normal LV function. ? --- PLAN --- > It is recommended that the patient have medical therapy for mild coronary disease. ? --- PATIENT PRESENTATION --- The patient is a 66 year old male with the following indications: ??VILLEGAS . The patient has the following Comorbidities/Risk Factors: ??Family History, Hyperlipidemia, Hypertension. : 1940 ?Sex: male ?Height: 177.8cm ?Weight: 75kg ?BSA: 1.93 Allergies: ??NKA Pre-Clinical Trials Data Coordinator Values: ??HCT: 44.3 ?Platelets: 245.0 ?Creatinine: 1.1 ? --- PROCEDURE --- DIAGNOSTIC CARDIAC PROCEDURE Under local anesthesia, the right femoral artery was accessed with a 6F sheath using modified Seldinger technique. ??A 6F JL4 catheter was introduced and positioned in the ascending aorta. Selective coronary arteriography was then performed using a 6F JL4 catheter to engage the left coronary artery and a 6F modified AR catheter to engage the right coronary artery. ??Right and left coronary arteriography were performed in multiple views. Using standard procedures, left ventriculography was performed. A 6F Pigtail was used to cross the aortic valve and measure pressures in the left ventricle. An injection of Isovue contrast was used for left ventriculography in the 30 degree [place] projection. The Access location was: ?? > Right Femoral Artery The Largest Arterial Sheath/Cath placed was ??6F The Hemostasis method used was: ?> Other > Starclose SELECTED MEDICATION ADMINISTERED DURING THE PROCEDURE: ??FENTANYL, VERSED ? (Please see PhysioLog report for complete list of medications used.) ?--- RESULTS --- HEMODYNAMICS ??Pressures: ?Site ?Systolic ??Diasto ??Mean ?lic ?AoA ? 111 ? 64 ?84 ?LV ?91 ?2 ?PBA ? 103 ? 61 ?81 ?PBV ? 103 ? -8 ?22 The left ventricular end diastolic pressure was normal. There was no gradient detected across the aortic valve. LEFT VENTRICULOGRAPHY The left ventricular function was normal. ??There was no mitral regurgitation. FEMORAL ANGIOGRAPHIC FINDINGS The right common femoral artery was normal in size and had no significant angiographic lesions. The femoral artery sheath was placed within the common femoral artery. CORONARY ANGIOGRAPHIC FINDINGS Left Main Artery: Coronary calcium was visible in all coronary arteries. The left main coronary artery is normal in size and has no significant angiographic lesions. Left Anterior Descending Artery: The LAD was normal in size and had mild luminal irregularities. Circumflex Artery: The ostial Circumflex artery has a focal 30% stenosis. Right Coronary Artery: The RCA is dominant. The RCA was normal in size and had mild luminal irregularities. Referring Physician: ALICIA CARRILLO,HILARIA Gray Diagnostic Attending: Jaiden Liu MD Diagnostic Fellow: Hui Graf NP As the attending, supervising topography technician, I was present for the entire procedure. Signature date/time: 2007 9:44:20 AM Procedure Note 01/16/2010 [facility] [address] [place] [id number] [phone] [email or web address] Final Diagnostic Cardiovascular Catheterization Report --- SUMMARY OF RESULTS --- >> Diagnostic cardiac catheterization was performed without anysignificant complications. > Coronary angiography revealed mild luminal irregularities only, with a30% ostial Circumflex taper. > The LV end diastolic pressure was normal. > Left ventriculography revealed normal left ventricular function.Regional wall motion abnormalities were absent. The ventriculogram revealed normalLV function. --- PLAN --- > It is recommended that the patient have medical therapy for mildcoronary disease. --- PATIENT PRESENTATION --- The patient is a 66 year old male with the following indications: VILLEGAS . The patient has the following Comorbidities/Risk Factors: FamilyHistory, Hyperlipidemia, Hypertension. : 1940 Sex: male Height: 177.8cm Weight: 75kg BSA:1.93 Allergies: NKA Pre-Clinical Trials Data Coordinator Values: HCT: 44.3 Platelets: 245.0 Creatinine: 1.1 --- PROCEDURE --- DIAGNOSTIC CARDIAC PROCEDURE Under local anesthesia, the right femoral artery was accessed with a 6Fsheath using modified Seldinger technique. A 6F JL4 catheter was introducedand positioned in the ascending aorta. Selective coronary arteriography was then performed using a 6F CJ4aicbkccf to engage the left coronary artery and a 6F modified AR catheter to engagethe right coronary artery. Right and left coronary arteriography wereperformed in multiple views. Using standard procedures, left ventriculography was performed. A 6FPigtail was used to cross the aortic valve and measure pressures in the leftventricle. An injection of Isovue contrast was used for left ventriculography in the30 degree [place] projection. The Access location was: > Right Femoral Artery The Largest Arterial Sheath/Cath placed was 6F The Hemostasis method used was: > Other > Starclose SELECTED MEDICATION ADMINISTERED DURING THE PROCEDURE: FENTANYL, VERSED (Please see PhysioLog report for complete list of medicationsused.) --- RESULTS --- HEMODYNAMICS Pressures: Site Systolic Diasto Mean lic AoA 111 64 84 LV 91 2 PBA 103 61 81 PBV 103 -8 22 The left ventricular end diastolic pressure was normal. There was no gradient detected across the aortic valve. LEFT VENTRICULOGRAPHY The left ventricular function was normal. There was no mitralregurgitation. FEMORAL ANGIOGRAPHIC FINDINGS The right common femoral artery was normal in size and had nosignificant angiographic lesions. The femoral artery sheath was placed within the common femoral artery. CORONARY ANGIOGRAPHIC FINDINGS Left Main Artery: Coronary calcium was visible in all coronary arteries. The left main coronary artery is normal in size and has no significant angiographic lesions. Left Anterior Descending Artery: The LAD was normal in size and had mild luminal irregularities. Circumflex Artery: The ostial Circumflex artery has a focal 30%stenosis. Right Coronary Artery: The RCA is dominant. The RCA was normal in size and had mild luminal irregularities. Referring Physician: HILARIA SHEN MD Diagnostic Attending: Jaiden Liu MD Diagnostic Fellow: Hui Graf NP As the attending, supervising topography technician, I was present for the entire procedure. Signature date/time: 2007 9:44:20 AM [place] Provider [id number] CARDIAC CATH ORDERABLES * PTT (01/14/2007 10:30 EDT) PTT 30 20 - 35 secs [facility] Comment:Therapeutic Heparin range: 60-100 seconds 01/14/2007 10:3 0 EDT 01/14/2007 10:38 EDT Jaiden Liu MD HEMATOLOGY & PF 4 ORDERABLES Performing Organization Address City/State/[facility] Co de Phone Number [facility] [address] [place] [address] * PROTIME (01/14/2007 10:30 EDT) Pro Time 14.6 12.0 - 15.0 secs [facility] I.N.R. 1.1 0.9 - 1.1 Ratio [facility] Comment: Moderate Intensity Coumadin INR = 2.0-3.0 Adjustments in anticoagulant therapy dose should be based upon the INR and NOT the Pro Time. 01/14/2007 10:3 0 EDT 01/14/2007 10:38 EDT Jaiden Liu MD HEMATOLOGY & PF 4 ORDERABLES Performing Organization Address [facility] Co de Phone Number [facility] [address] [place] [address] * ELECTROLYTES (01/14/2007 10:30 EDT) Sodium 140 136 - 145 mEq/L [facility] Potassium 4.0 3.5 - 5.0 mEq/L [facility] Chloride 105 96 - 110 mEq/L [facility] CO2 27 24 - 32 mEq/L [facility] 01/14/2007 10:3 0 EDT 01/14/2007 10:38 EDT Jaiden Liu MD CHEMISTRY & BLO OD GAS ORDERABLES Performing Organization Address [facility] Co de Phone Number [facility] [address] [place] [address] * CREATININE (01/14/2007 10:30 EDT) Creatinine 1.10 0.7 - 1.5 mg/dl [facility] GFR, Calculated >60 ml/min/1.7 3m2 [facility] 01/14/2007 10:3 0 EDT 01/14/2007 10:38 EDT Jaiden Liu MD CHEMISTRY & BLO OD GAS ORDERABLES Performing Organization Address [facility] Co de Phone Number [facility] [address] [place] [address] * HEMAGRAM (01/14/2007 10:30 EDT) WBC 6.35 4.0 - 10.4 K/cmm [facility] RBC 4.84 4.36 - 5.78 M/cmm [facility] Hemoglobin 15.4 13.8 - 17.3 gm/dl [facility] HCT 44.3 39.5 - 50.2 % [facility] MCV 91 81 - 95 fl [facility] MCH 31.7 27.6 - 33.0 pg [facility] MCHC 34.7 32.8 - 36.4 gm/dl [facility] PLT 245 141 - 320 K/cmm [facility] RDW-CV 13.4 11.8 - 14.1 % [facility] 01/14/2007 10:3 0 EDT 01/14/2007 10:38 EDT Jaiden Liu MD HEMATOLOGY & PF 4 ORDERABLES Performing Organization Address City/[facility] Co de Phone Number [facility] [address] [place] [address] * BUN (01/14/2007 10:30 EDT) BUN 19 10 - 26 mg/dl [facility] 01/14/2007 10:3 0 EDT 01/14/2007 10:38 EDT Jaiden Liu MD CHEMISTRY & BLO OD GAS ORDERABLES Performing Organization Address City/[facility] Co de Phone Number [facility] [address] [place] [address] documented in this encounter Visit Diagnoses Not on filedocumented in this encounter
--- OUTSIDE RECORDS SUMMARY | 2024-04-20 20:31 | XMS_ITS | Encounter Summary ---
Author Organization [facility] Address [address] [place] [address] Care Team Providers Care Stone Paver Name Role Phone Todd Shen MD Primary Care Provider Unavail able Encounter Details Date Type Department Care Team (Latest Contact Info) Description 05/18/2018 15:25 EDT - 05/18/2018 23:59 EDT Hospital Encounter [address] [address] Unknown, Provider, Discharge Disposition: Home or Self Care Social History Tobacco Use Types Packs/Day Years Used Date Smoking Tobacco: Never Assessed Sex and Gender Information Value Date Recorded Sex Assigned at Not on file Gender Identity Not on file Sexual Orientation Not on file documented as of this encounter Medications at Time of Discharge [...] Code Departure Means Destination Home or Self Retirement documented in this encounter Plan of Treatment Not on file documented as of this encounter Visit Diagnoses Not on filedocumented in this encounter Care Teams Stone Paver Relationship Specialty Start Date End Date Todd Shen MD PCP - General 01/31/09 documented as of this encounter
--- OUTSIDE RECORDS SUMMARY | 2024-04-20 20:31 | XMS_ITS | Encounter Summary ---
Author Organization [facility] Address [address] [place] [address] Care Team Providers Care Junior Oracle Dba Name Role Phone Todd Shen MD Primary Care Provider Unavail able Encounter Details Date Type Department Care Team (Late st Contact Info) Description 05/25/2021 Lab Requisition [facility] Pathology & Laboratory Medicine - [facility] [address] [place] [address] Frank May, PAJefferyC [address] [facility] [address] [place] [address] Neoplasm of uncertain behavior of [...] Date/Time Associated Diagnosis Comments SURGICAL PATHOLOGY Today 05/24/2021 11 :06 EDT Neoplasm of uncertain behavior of skin documented in this encounter Results * SURGICAL PATHOLOGY (05/24/2021 11:06 EDT) Note to Patient The following pathology results have been interpreted by your pathologist and may be available to you before your health provider has had the opportunity to review them. Please allow time for your provider to receive these results and explore management options, if applicable. 05/27/2021 9:45 EDT [facility] Final Diagnosis A. SKIN OF BAHAI, LEFT CENTRAL, SHAVE BIOPSY: - Basal cell carcinoma, nodular type. - Lesion extends to biopsy base. 05/27/2021 9:45 [facility] Attestation By the signature below, the attending physician certifies that they have 1) personally conducted a gross and/or microscopic examination of the described specimen(s), and/or personally interpreted the results of laboratory testing of the described specimen(s), and 2) personally rendered or confirmed the above diagnosis. 05/27/2021 9:45 [facility] at 0945 Clinical History 1.2 cm eroded plaque; DDx: R/O squamous cell carcinoma vs basal cell carcinoma; clinical diagnosis code: D48.5 05/27/2021 9:45 [facility] Gross Description A. Received in formalin labelled with proper patient identification (initials L, D) and left central taoism is an irregular shave biopsy of a lee to brown mottled, nodular skin lesion (0.8 x 0.6 x 0.1 cm). The specimen is inked, bisected and submitted entirely in A1. MANNY PAYNE(ASCP) 05/25/2021 15:25 05/27/2021 9:45 T [facility] Performing Lab [facility] 05/27/2021 9:45 T [facility] Scanned Images 05/27/2021 9:45 [facility] Tissue TISSUE SPECIMEN FROM SKIN / Unknown 05/24/2021 11:06 EDT 05/25/2021 8:44 EDT Frank May PA-C PATHOLOGY ORDERAB LES [facility] [address] [place] [address] documented in this encounter Visit Diagnoses Diagnosis Neoplasm of uncertain behavior of skin documented in this encounter Care Teams Junior Oracle Dba Relationship Specialty Start Date End Date Todd Shen MD PCP - General 01/31/09 documented as of this encounter
--- OUTSIDE RECORDS SUMMARY | 2024-04-20 20:31 | XMS_ITS | Encounter Summary ---
Author Organization [facility] Address [address] [place] [address] Care Team Providers Care Lead Software Tester Name Role Phone Unavailable Primary Care Provider Unavailabl e Encounter Details Date Type Department Care Team (Late st Contact Info) Description 01/30/2009 Orders Only [facility] Laboratory Services - [facility] ([facility]) [address] [place], [place] [address] Chris Inman, PERSONNEL SUPERVISOR [address] [place], [place] [address] Social History Tobacco Use Types Packs/Day Years Used Date Smoking Tobacco: Never Assessed Sex and Gender Information Value Date Recorded Sex Assigned at Not on file Gender Identity Not on file Sexual Orientation Not on file documented as of this encounter Plan of Treatment Not on file documented as of this encounter Procedures Procedure Name Priority Date/Time Associated Diagnosis Comments SURGICAL PATHOLOGY Routine 01/30/2009 0:00 EDT documented in this encounter Results * SURGICAL PATHOLOGY (01/30/2009 0:00 EDT) Pathology Report: SURGICAL PATHOLOGY REPORT ? Reports generated via electronic interface contain original data; ? however they are lacking the format of the original report. ? Caution should be taken when reading/interpreting unformatted reports. ? Name: ? LAFOE, GARETT B ? Accession #: ? [id number] ? : ? 1940 (Age: 69) ??M ? Collect Date: ? 01/30/2009 ? Location: ? [facility] ? Receive Date: ? 01/30/2009 ? Provider: CHRIS B HARKIN 5TH GRADE TEACHER ? Copy to: PETER B VARGAS MD ? Final Pathologic Diagnosis: ? A. ?Skin of cheek, right, partial shave biopsy: ? 1. ?Squamous cell carcinoma, well differentiated, invasive. See ? microscopic and comment. ? - Lesion extends to base of biopsy specimen. ? B. ?? Skin of malar region, left, shave biopsy: ? 1. ?? Mild perifolliculitis with associated telangiectasias. ? Comment: ? In specimen (B), despite deeper levels, there is no evidence of basal cell carcinoma. Some of the histologic features raise the possibility of rosacea. ? This case has been shown in intradepartmental consultation. ? (Dr. Carroll)/kmm ? Microscopic Description: ? (A) The stratum corneum is thickened by orthohyperkeratosis and ? parakeratosis. ??Emanating from the epidermis and extending into the dermis is a proliferation of atypical squamous epithelium. ??The proliferation consists of ?? variably sized, irregular islands associated with dermal desmoplasia. ??The cells have an increased nuclear-cytoplasmic ratio and nuclear pleomorphism. ? Intercellular bridge and keratin obinna formation are evident. Deeper levels have been examined. ? (B) Sections consist of a shave biopsy of skin. ??There is mild follicular ? dilatation with associated perifollicular inflammation. ??Within the dermis are ?? scattered lymphomononuclear cells with plasma cells and dilated blood vessels. ?? There is focal epidermal erosion with reactive changes. ??Deeper levels have been examined. ? (Dr. Carroll)/kmm ? Document reviewed and electronically signed by: ? Farrah Carroll MD ? Report ??Date: 02/01/2009 16:04 ? By the signature above, the attending physician certifies that he/she has ? personally conducted a gross and/or microscopic examination of the described ? specimens and rendered or confirmed the above diagnosis. ? Specimen(s) Received: ? A. ?R cheek ? B. ? L malar ? Clinical History: ? A. hypertrophic AK vs SCC ??partial shave; B. ? BCC; clinical diagnosis ? code: ??238.2 ? Gross Description: ? Received in formalin labelled Garett Malave and Hanna yates ??partial is a ?? shave biopsy of lee-white skin measuring 0.7 x 0.3 x 0.1 cm. ??The specimen is ?? trisected and submitted entirely as (A). ? Received in formalin labelled Garett Malave and Duy moore is a shave biopsy of lee skin measuring 0.6 x 0.5 x 0.1 cm. ??The specimen is bisected and submitted ?? entirely as (B). (Jamey Lerner)/mpl ? End of Report ? [facility] 01/30/2009 01/30/2009 13: 40 EDT Chris Inman NP PATHOLOGY ORDERABLES Performing Organization Address City/State/[facility] Co de Phone Number [facility] [address] [place] [address] documented in this encounter Visit Diagnoses Not on filedocumented in this encounter
== END 2024-04-20 20:24 | disposition home or self-care (01) ==
LOC: NCHCN 20:23
PROVIDERS: PCP Internal Medicine; Visit Provider Internal Medicine
DX: I10 Essential (primary) hypertension (principal)
CPT/HCPCS: 80048

== ENCOUNTER 2025-02-15 18:56 | Outpatient (REF) | payer MEDICARE, SELFPAY ==
[2025-02-15 22:46] LABS: Anion Gap 10.4 mmol/L (3-11); BUN 26 mg/dL (7-18); CO2 23.6 mmol/L (21.0-32.0); Calcium 9.3 mg/dL (8.5-10.1); Chloride 107 mmol/L (98-107); Estimated GFR 54.17 (mL/min/1.73m2); Glucose 97 mg/dL (74-106); Potassium 3.9 mmol/L (3.5-5.1); Sodium 141 mmol/L (136-145)
== END 2025-02-15 18:57 | disposition home or self-care (01) ==
LOC: NCHCN 18:56
PROVIDERS: PCP Internal Medicine; Visit Provider Internal Medicine
DX: I10 Essential (primary) hypertension (principal)
CPT/HCPCS: 80048